=== PATIENT | female | born 1990 | race Caucasian/White ===

== ENCOUNTER 2020-07-09 14:32 | Outpatient (REF) | payer OTHER, SELFPAY ==
[2020-07-09 16:02] LABS: Basophils Absolute Auto 0.1 X10*3/uL (0.0-0.2); Basophils Percent Auto 0.7 % (0-2); MANUAL DIFF FLAG SCAN; Monocytes Percent Auto 8.2 % (2-11); Neutrophils Absolute Auto 4.7 X10*3/uL (2.0-8.3); PLT CLUMP 1; SCAN SMEAR FLAG 1
[2020-07-09 16:04] LABS: Eosinophils Absolute Auto 0.5 X10*3/uL (0.0-0.4); Hematocrit 41.8 % (37-47); Hemoglobin 13.7 g/dl (12.0-16.0); Imm Gran Abs Auto 0.01 X10*3/uL (0.00-0.03); Imm Gran Pct Auto 0.1 % (0.0-0.4); Lymphocytes Absolute Auto 1.7 X10*3/uL (1.2-4.9); Lymphocytes Percent Auto 22.8 % (20-40); Mean Corpuscular HGB Conc 32.8 g/dl (31.0-35.0); Mean Corpuscular Hemoglobin 28.2 pg (27.0-33.0); Monocytes Absolute Auto 0.6 X10*3/uL (0.1-1.2); Neutrophils Percent Auto 62.2 % (45-73); Red Blood Count 4.86 X10*6/uL (4.20-5.50); White Blood Count 7.6 X10*3/uL (4.8-10.8)
[2020-07-09 16:24] LABS: Platelet Count 212 X10*3/uL (160-400)
[2020-07-09 16:26] LABS: SLIDE REVIEW VERIFIED
[2020-07-09 17:07] LABS: Alanine Aminotransferase 25 U/L (0-31); Albumin Level 4.6 g/dL (3.5-5.0); Alkaline Phosphatase 96 U/L (39-117); Anion Gap 14 (12-20); Aspartate Amino Transferase 25 U/L (5-31); Bilirubin Total 0.4 mg/dL (0.0-1.0); Blood Urea Nitrogen 13 mg/dL (9-16); Carbon Dioxide 26 mmol/L (22-29); Chloride 104 mmol/L (96-108); Cholesterol 239 mg/dL; Estimated Glomerular Filt Rate > 60; Glucose Fasting 84 mg/dL (60-99); HDL Cholesterol 61 mg/dL; LDL Cholesterol Calculated 153 mg/dl; Potassium 4.5 mmol/l (3.3-5.1); Sodium 139 mmol/L (135-145); Total Protein 7.4 g/dL (6.5-8.0); Triglycerides 126 mg/dL
[2020-07-09 17:27] LABS: Vitamin D 25-OH Total 11.2 ng/mL (>30)
[2020-07-09 17:28] LABS: TSH reflex Free T4 0.63 mIU/mL (0.32-4.0)
[2020-07-10 12:33] LABS: Complement C3 160 mg/dL (83-193)
[2020-07-10 14:33] LABS: Anti DNA DS Antibody <1 IU/mL; Antibody to SS-A Antigen <1.0 NEG AI (<1.0 NEG); Antibody to SS-B Antigen <1.0 NEG AI (<1.0 NEG)
[2020-07-11 13:18] LABS: Anti Nuclear Antibody Screen NEGATIVE (NEGATIVE)
== END 2020-07-09 14:33 | disposition home or self-care (01) ==
LOC: HO.LAB 14:32
PROVIDERS: Absent Provider Physician Assistant; PCP Physician Assistant; Visit Provider Physician Assistant
DX: L56.3 Solar urticaria (principal); J30.1 Allergic rhinitis due to pollen; E78.9 Disorder of lipoprotein metabolism, unspecified; E66.09 Other obesity due to excess calories; Z68.34 Body mass index [BMI] 34.0-34.9, adult
CPT/HCPCS: 36415; 80053; 80061; 82306; 84443; 85025; 86038; 86039; 86160; 86225; 86235

== ENCOUNTER 2021-04-30 09:09 | Outpatient (REF) | payer BC, SELFPAY ==
[2021-04-30 09:47] LABS: Hematocrit 40.1 % (37-47); Hemoglobin 13.2 g/dl (12.0-16.0); Mean Corpuscular HGB Conc 32.9 g/dl (31.0-35.0); Mean Corpuscular Hemoglobin 27.8 pg (27.0-33.0); Mean Corpuscular Volume 84.4 fL (80-98); Mean Platelet Volume 10.2 fL (9.4-12.3); Platelet Count 287 X10*3/uL (160-400); Red Blood Count 4.75 X10*6/uL (4.20-5.50); Red Cell Distribution Width 13.4 % (11.0-16.0); White Blood Count 8.1 X10*3/uL (4.8-10.8)
[2021-04-30 09:54] LABS: Estimated Average Glucose 108 mg/dL; Hemoglobin A1c % 5.4 %
[2021-04-30 10:12] LABS: Alanine Aminotransferase 39 U/L (0-31); Albumin Level 4.3 g/dL (3.5-5.0); Alkaline Phosphatase 87 U/L (39-117); Anion Gap 12 (12-20); Aspartate Amino Transferase 25 U/L (5-31); Bilirubin Total 0.4 mg/dL (0.0-1.0); Blood Urea Nitrogen 15 mg/dL (9-16); Calcium 9.1 mg/dL (8.4-10.2); Carbon Dioxide 24 mmol/L (22-29); Chloride 107 mmol/L (96-108); Cholesterol 204 mg/dL; Estimated Glomerular Filt Rate > 60; Glucose Fasting 98 mg/dL (60-99); HDL Cholesterol 35 mg/dL; LDL Cholesterol Calculated 95 mg/dl; Potassium 4.2 mmol/L (3.3-5.1); Sodium 139 mmol/L (135-145); Total Protein 6.9 g/dL (6.5-8.0); Triglycerides 372 mg/dL
[2021-04-30 10:35] LABS: TSH reflex Free T4 1.54 uIU/mL (0.32-4.0)
== END 2021-04-30 09:10 | disposition home or self-care (01) ==
LOC: HO.LAB 09:09
PROVIDERS: PCP Physician Assistant; Visit Provider Physician Assistant
DX: E66.09 Other obesity due to excess calories (principal); Z68.34 Body mass index [BMI] 34.0-34.9, adult; E78.9 Disorder of lipoprotein metabolism, unspecified; I10 Essential (primary) hypertension
CPT/HCPCS: 36415; 80053; 80061; 83036; 84443; 85027

== ENCOUNTER 2022-04-06 19:33 | Emergency (ER) | payer BC, SELFPAY ==
[2022-04-06 20:30] VITALS: BP 115/68; PULSE 105; RESP 18; TEMP 37.2; O2SAT 95; BMI 33.5
[2022-04-06 20:59] LABS: MANUAL DIFF FLAG NO
[2022-04-06 21:02] LABS: Basophils Absolute Auto 0.1 X10*3/uL (0.0-0.2); Basophils Percent Auto 0.5 % (0-2); Eosinophils Absolute Auto 0.4 X10*3/uL (0.0-0.4); Eosinophils Percent Auto 3.8 % (0-4); Hematocrit 34.2 % (37.0-47.0); Hemoglobin 11.5 g/dl (12.0-16.0); Imm Gran Abs Auto 0.09 X10*3/uL (0.00-0.03); Imm Gran Pct Auto 0.8 % (0.0-0.4); Lymphocytes Absolute Auto 0.8 X10*3/uL (1.2-4.9); Lymphocytes Percent Auto 7.1 % (20-40); Mean Corpuscular HGB Conc 33.6 g/dl (31.0-35.0); Mean Corpuscular Hemoglobin 28.3 pg (27.0-33.0); Mean Platelet Volume 10.5 fL (9.4-12.3); Monocytes Absolute Auto 0.8 X10*3/uL (0.1-1.2); Monocytes Percent Auto 7.7 % (2-11); Neutrophils Absolute Auto 8.6 x10*3/uL (2.0-8.3); Neutrophils Percent Auto 80.1 % (45-73); Platelet Count 230 X10*3/uL (160-400); Red Blood Count 4.07 X10*6/uL (4.20-5.50); Red Cell Distribution Width 14.8 % (11.0-16.0); White Blood Count 10.8 X10*3/uL (4.8-10.8)
[2022-04-06 21:04] LABS: COVID-19 Test Negative (Negative); IDNOW Serial# 55D5AD1C
[2022-04-06 21:23] LABS: Alanine Aminotransferase 13 U/L (0-31); Albumin Level 3.6 g/dL (3.5-5.0); Alkaline Phosphatase 104 U/L (39-117); Anion Gap 19 (12-20); Aspartate Amino Transferase 19 U/L (5-31); Bilirubin Total 0.2 mg/dL (0.0-1.0); Blood Urea Nitrogen 7 mg/dL (9-16); Calcium 8.8 mg/dL (8.4-10.2); Carbon Dioxide 16 mmol/L (22-29); Chloride 106 mmol/L (96-108); Creatinine Clr Calc Pharmacy 129.9; Estimated Glomerular Filt Rate > 60; Glucose Random 97 mg/dL (60-115); Sodium 137 mmol/L (135-145); Total Protein 6.5 g/dL (6.5-8.0)
[2022-04-07 01:48] VITALS: BP 120/70; PULSE 107; RESP 17; TEMP 36.9; O2SAT 97
[2022-04-07 02:08] LABS: Appearance Urine Clear; Color Urine Yellow; Glucose Urine UA Negative (Negative); Leukocyte Esterase Urine Negative (Negative); Nitrite Urine Negative (Negative); PH 5.5 (5.0-9.0); Specific Gravity - Urine 1.025 (1.005-1.025); Urine Blood Negative (Negative); Urine Ketones Trace mg/dL (Negative); Urine Protein Negative (Neg-Trace)
--- NOTE | 2022-04-07 03:02 | ED_ITS ---
HPI - URI/Sore Throat General Chief Complaint: Fever Stated Complaint: 21 wks , flu like symptoms Time Seen by Provider: 04/07/22 03:02 Source: patient Mode of arrival: ambulatory Limitations: no limitations History of Present Illness HPI Narrative: Patient 21 weeks complaining of flu-like symptoms with subjective shortness of breath body aches chills off and on history of asthma saturating 95% at room air no other family member sick Related Data Home Medications Medication Instructions Recorded Confirmed cetirizine 10 mg tablet 10 mg PO DAILY PRN 11/20/20 04/30/21 hydrocortisone 2.5 % topical topical 11/20/20 04/30/21 ointment Previous Rx's Medication Instructions Recorded lorazepam 0.5 mg tablet 0.5 mg PO DAILY PRN anxiety 7 days 11/20/20 #7 tabs fluticasone propionate 50 1 spray intranasal DAILY #16 mL 03/16/21 mcg/actuation nasal spray,suspension albuterol sulfate 90 mcg/actuation 2 puff inhalation Q4-6H PRN 03/30/21 aerosol inhaler shortness of breath or wheezing 30 days #8.5 grams fluticasone propionate 110 1 puff inhalation BID 30 days #12 04/30/21 mcg/actuation HFA aerosol inhaler grams (Flovent HFA) montelukast 10 mg tablet 10 mg PO DAILY #90 tabs 04/30/21 prednisone 10 mg tablet 30 mg PO DAILY 3 days #9 tabs 11/24/21 sertraline 25 mg tablet 25 mg PO DAILY #30 tabs 12/03/21 budesonide 90 mcg/actuation breath 1 inh inhalation Q12H 30 days #1 ea 02/23/22 activated powder inhaler Allergies Allergy/AdvReac Type Severity Reaction Status Date / Time Seasonal Allergies Allergy Mild sneezing, Verified 04/06/22 20:32 runny nose cat saliva Allergy Mild hives, Uncoded 03/30/21 16:49 itchy eyes Review of Systems Review of Systems: Yes all other systems are reviewed and are negative [facility] Family History Family History Mother High cholesterol Diabetes Fibromyalgia Social History Social History Housing: House Alcohol intake: never Patient Tobacco Use Status: Never used Tobacco e-Cigarette/Vaping Use: Never Used Advance Directives: No Advance Directives Information Provided: Yes service: No Current occupational status: employed Current occupation: [employer] Physical Exam Vital Signs: Vital Signs: Last Vital Signs Temp 98.5 F 04/07/22 01:48 Pulse 107 H 04/07/22 01:48 Resp 17 04/07/22 01:48 BP 120/70 04/07/22 01:48 Pulse Ox 97 04/07/22 01:48 O2 Del Method 04/07/22 01:48 BMI result Body Mass Index 33.5 Appearance: Alert. Oriented X3. No acute distress. Eyes: PERRLA, No Nystagmus ENT: Pharynx normal. Oral Mucosa moist rhinorrhea+ Neck: Normal inspection. Neck supple. CVS: Normal heart rate and rhythm. Pulses normal. Respiratory: No respiratory distress. Equal air entry bilateral, no wheezing/rales/rhonchi Abdomen: Soft and nontender.gravid uterus Bowel sounds are present, no mass palpable, no CVA tenderness Skin: Skin warm and dry. Normal skin color. Normal skin turgor. Extremities: No lower extremity edema. No calf tenderness Neuro: Oriented X 3. No motor deficit. MDM - URI/Sore Throat Lab Data Attestation: I reviewed the patient's lab results. Result diagrams: 04/06/22 20:56 04/06/22 20:56 Labs: Lab Results 04/06/22 04/06/22 04/06/22 Range/Units 20:34 20:56 20:56 WBC 10.8 (4.8-10.8) X10*3/uL RBC 4.07 L (4.20-5.50) X10*6/uL Hgb 11.5 L (12.0-16.0) g/dl Hct 34.2 L (37.0-47.0) % MCV 84.0 (80.0-98.0) fL MCH 28.3 (27.0-33.0) pg MCHC 33.6 (31.0-35.0) g/dl RDW 14.8 (11.0-16.0) % Plt Count 230 (160-400) X10*3/uL MPV 10.5 (9.4-12.3) fL Immature Gran % (Auto) 0.8 H (0.0-0.4) % Neut % (Auto) 80.1 H (45-73) % Lymph % (Auto) 7.1 L (20-40) % Starr % (Auto) 7.7 (2-11) % Eos % (Auto) 3.8 (0-4) % Baso % (Auto) 0.5 (0-2) % Lymph # (Auto) 0.8 L (1.2-4.9) X10*3/uL [place] # (Auto) 0.8 (0.1-1.2) X10*3/uL Eos # (Auto) 0.4 (0.0-0.4) X10*3/uL Baso # (Auto) 0.1 (0.0-0.2) X10*3/uL Abs Immat Gran (auto) 0.09 H (0.00-0.03) X10*3/uL Absolute Neuts (auto) 8.6 H (2.0-8.3) x10*3/uL Absolute Nucleated RBC 0.000 (0.0-0.012) X10*3/uL Nucleated RBC % (auto) 0.0 (0.0-0.2) /100WBC Sodium 137 (135-145) mmol/L Potassium 4.0 (3.3-5.1) mmol/L Chloride 106 (96-108) mmol/L Carbon Dioxide 16 L (22-29) mmol/L Anion Gap 19 (12-20) BUN 7 L (9-16) mg/dL Creatinine 0.59 (0.5-1.4) mg/dL Estim Creat Clear Calc 129.9 Estimated GFR > 60 Random Glucose 97 (60-115) mg/dL Calcium 8.8 (8.4-10.2) mg/dL Total Bilirubin 0.2 (0.0-1.0) mg/dL AST 19 (5-31) U/L ALT 13 (0-31) U/L Alkaline Phosphatase 104 (39-117) U/L Total Protein 6.5 (6.5-8.0) g/dL Albumin 3.6 (3.5-5.0) g/dL Urine Color Urine Appearance Urine pH (5.0-9.0) Ur Specific [place] (1.005-1.025) Urine Protein (Neg-Trace) mg/dL Urine Glucose (UA) (Negative) mg/dL Urine Ketones (Negative) mg/dL Urine Blood (Negative) Urine Nitrite (Negative) Ur Leukocyte Esterase (Negative) COVID-19 ([facility]) Negative (Negative) COVID-19 Clin Com See Note 04/07/22 Range/Units 02:01 WBC (4.8-10.8) X10*3/uL RBC (4.20-5.50) X10*6/uL Hgb (12.0-16.0) g/dl Hct (37.0-47.0) % MCV (80.0-98.0) fL MCH (27.0-33.0) pg MCHC (31.0-35.0) g/dl RDW (11.0-16.0) % Plt Count (160-400) X10*3/uL MPV (9.4-12.3) fL Immature Gran % (Auto) (0.0-0.4) % Neut % (Auto) (45-73) % Lymph % (Auto) (20-40) % Starr % (Auto) (2-11) % Eos % (Auto) (0-4) % Baso % (Auto) (0-2) % Lymph # (Auto) (1.2-4.9) X10*3/uL Starr # (Auto) (0.1-1.2) X10*3/uL Eos # (Auto) (0.0-0.4) X10*3/uL Baso # (Auto) (0.0-0.2) X10*3/uL Abs Immat Gran (auto) (0.00-0.03) X10*3/uL Absolute Neuts (auto) (2.0-8.3) x10*3/uL Absolute Nucleated RBC (0.0-0.012) X10*3/uL Nucleated RBC % (auto) (0.0-0.2) /100WBC Sodium (135-145) mmol/L Potassium (3.3-5.1) mmol/L Chloride (96-108) mmol/L Carbon Dioxide (22-29) mmol/L Anion Gap (12-20) BUN (9-16) mg/dL Creatinine (0.5-1.4) mg/dL Estim Creat Clear Calc Estimated GFR Random Glucose (60-115) mg/dL Calcium (8.4-10.2) mg/dL Total Bilirubin (0.0-1.0) mg/dL AST (5-31) U/L ALT (0-31) U/L Alkaline Phosphatase (39-117) U/L Total Protein (6.5-8.0) g/dL Albumin (3.5-5.0) g/dL Urine Color Yellow Urine Appearance Clear Urine pH 5.5 (5.0-9.0) Ur Specific [place] 1.025 (1.005-1.025) Urine Protein Negative (Neg-Trace) mg/dL Urine Glucose (UA) Negative (Negative) mg/dL Urine Ketones Trace (Negative) mg/dL Urine Blood Negative (Negative) Urine Nitrite Negative (Negative) Ur Leukocyte Esterase Negative (Negative) COVID-19 ([facility]) (Negative) COVID-19 Clin Com Discharge Plan Discharge Clinical Impression: Upper respiratory infection Patient Disposition: Home, Self-Care Instructions: Upper Respiratory Infection (ED) Additional Instructions: Continue to use your inhaler as needed Humidified air Tylenol for fever or pain Follow with PCP as needed Prescriptions: No Action fluticasone propionate 50 mcg/actuation spray,suspension 1 spray intranasal DAILY Qty: 16 3RF prednisone 10 mg tablet 30 mg PO DAILY 3 Days Qty: 9 0RF sertraline 25 mg tablet 25 mg PO DAILY Qty: 30 3RF budesonide 90 mcg/actuation aerosol powdr breath activated 1 inh inhalation Q12H 30 Days Qty: 1 1RF Flovent HFA 110 mcg/actuation HFA aerosol inhaler 1 puff inhalation BID 30 Days Qty: 12 3RF montelukast 10 mg tablet 10 mg PO DAILY Qty: 90 2RF cetirizine 10 mg tablet 10 mg PO DAILY PRN hydrocortisone 2.5 % ointment topical lorazepam 0.5 mg tablet 0.5 mg PO DAILY PRN (Reason: anxiety) 7 Days Qty: 7 0RF albuterol sulfate 90 mcg/actuation HFA aerosol inhaler 2 puff inhalation Q4-6H PRN (Reason: shortness of breath or wheezing) 30 Days Qty: 8.5 3RF Interventions: ED Discharge Assessment Last Done: 04/07/22 03:21 Discharge Date/Time: 04/07/22 03:26
--- NOTE | 2022-04-07 03:22 | PC.NURSE ---
HR 154
== END 2022-04-07 03:26 | disposition home or self-care (01) ==
PROVIDERS: Emergency Provider Internal Medicine; PCP Physician Assistant
DX: J06.9 Acute upper respiratory infection, unspecified (principal); R50.9 Fever, unspecified; Z20.822 Contact with and (suspected) exposure to COVID-19; Z79.899 Other long term (current) drug therapy
CPT/HCPCS: 80053; 81003; 85025; 87635; 99283

== ENCOUNTER 2022-05-21 14:49 | Outpatient (REF) | payer BC, SELFPAY ==
[2022-05-21 16:31] LABS: TSH reflex Free T4 0.44 uIU/mL (0.32-4.0); Vitamin D 25-OH Total 41.2 ng/mL (>30)
== END 2022-05-21 14:50 | disposition home or self-care (01) ==
LOC: HO.LAB 14:49
PROVIDERS: PCP Physician Assistant; Visit Provider Nurse Practitioner Family
DX: Z00.00 Encounter for general adult medical examination without abnormal findings (principal)
CPT/HCPCS: 36415; 82306; 84443

== ENCOUNTER 2023-03-29 08:47 | Emergency (ER) | payer BC, SELFPAY ==
--- NOTE | ~2023-03-29 | US_ITS ---
EXAMINATION: US PELVIS CLINICAL INFORMATION: The conus, lower abdominal pain COMPARISON: None available. TECHNIQUE: Ultrasound of the pelvis is performed using both transabdominal and transvaginal transducers along with Doppler. Transvaginal imaging is performed due to inadequate visualization transabdominally. FINDINGS: Uterus: The uterus is anteverted and measures 7.9 x 3.9 x 4.6 cm. The double wall endometrial thickness is 0.92 cm . The uterus is smooth in contour and has normal myometrial echogenicity. No visible fibroid. Adnexa: Both ovaries are visualized. There is normal color flow to the adnexa. There is no ovarian torsion. There is no pelvic ascites or fluid collection. Right ovary measures 3.2 x 1.9 x 1.7 centimeters and volume 5.5 mL. No focal lesion seen previously right ovary measured 4.0 x 5.0 x 3.3). Left ovary measures 3.8 x 1.9 x 2.1 cm and volume 1.9 mL. No focal lesion seen. Previously it measured 2.2 x 3.1 x 1.7). There is normal arterial and venous flow seen on color and Doppler imaging. There is mild prominent of pulmonary vessels in the right adnexa. There is small amount of free fluid in the cul-de-sac. US/US pelvic and transvaginal IMPRESSION: Unremarkable uterus. The ovaries are unremarkable with normal color flow and Doppler imaging. There is no evidence of ovarian torsion. Suspected right pelvic congestion. Small amount of free fluid in cul-de-sac.
--- NOTE | ~2023-03-29 | US_ITS ---
EXAMINATION: US PELVIS CLINICAL INFORMATION: The conus, lower abdominal pain COMPARISON: None available. TECHNIQUE: Ultrasound of the pelvis is performed using both transabdominal and transvaginal transducers along with Doppler. Transvaginal imaging is performed due to inadequate visualization transabdominally. FINDINGS: Uterus: The uterus is anteverted and measures 7.9 x 3.9 x 4.6 cm. The double wall endometrial thickness is 0.92 cm . The uterus is smooth in contour and has normal myometrial echogenicity. No visible fibroid. Adnexa: Both ovaries are visualized. There is normal color flow to the adnexa. There is no ovarian torsion. There is no pelvic ascites or fluid collection. Right ovary measures 3.2 x 1.9 x 1.7 centimeters and volume 5.5 mL. No focal lesion seen previously right ovary measured 4.0 x 5.0 x 3.3). Left ovary measures 3.8 x 1.9 x 2.1 cm and volume 1.9 mL. No focal lesion seen. Previously it measured 2.2 x 3.1 x 1.7). There is normal arterial and venous flow seen on color and Doppler imaging. There is mild prominent of pulmonary vessels in the right adnexa. There is small amount of free fluid in the cul-de-sac. US/US pelvic ovarian doppler IMPRESSION: Unremarkable uterus. The ovaries are unremarkable with normal color flow and Doppler imaging. There is no evidence of ovarian torsion. Suspected right pelvic congestion. Small amount of free fluid in cul-de-sac.
[2023-03-29 08:53] VITALS: BP 132/72; PULSE 100; RESP 18; TEMP 36.7; O2SAT 99; BMI 35.7
[2023-03-29 09:09] LABS: MANUAL DIFF FLAG NO
[2023-03-29 09:12] LABS: Basophils Absolute Auto 0.1 X10*3/uL (0.0-0.2); Basophils Percent Auto 0.9 % (0-2); Eosinophils Absolute Auto 0.5 X10*3/uL (0.0-0.4); Eosinophils Percent Auto 6.1 % (0-4); Hematocrit 40.5 % (37.0-47.0); Imm Gran Abs Auto 0.04 X10*3/uL (0.00-0.03); Imm Gran Pct Auto 0.5 % (0.0-0.4); Lymphocytes Absolute Auto 1.8 X10*3/uL (1.2-4.9); Lymphocytes Percent Auto 21.4 % (20-40); Mean Corpuscular HGB Conc 32.1 g/dl (31.0-35.0); Mean Corpuscular Hemoglobin 26.7 pg (27.0-33.0); Mean Corpuscular Volume 83.2 fL (80.0-98.0); Mean Platelet Volume 10.1 fL (9.4-12.3); Monocytes Absolute Auto 0.6 X10*3/uL (0.1-1.2); Monocytes Percent Auto 7.7 % (2-11); Neutrophils Absolute Auto 5.2 x10*3/uL (2.0-8.3); Neutrophils Percent Auto 63.4 % (45-73); Platelet Count 263 X10*3/uL (160-400); Red Blood Count 4.87 X10*6/uL (4.20-5.50); Red Cell Distribution Width 14.5 % (11.0-16.0); White Blood Count 8.2 X10*3/uL (4.8-10.8)
--- NOTE | 2023-03-29 09:12 | ED.ABDPAIN ---
HPI - Abdominal Pain General Chief Complaint: Abdominal Pain Stated Complaint: Abd pain Time Seen by Provider: 03/29/23 09:06 Source: patient, RN notes reviewed and old records reviewed Mode of arrival: ambulatory History of Present Illness HPI narrative: 32yo female with a history of PCOS w/ ruptured cyst presenting to the ED c/o lower abdominal pain that started 2 hours ago. Patient is 7 months with an uncomplicated vaginal delivery. Denies use of contraception and LMP was 02/23/23. Denies trauma to the abdomen, fever, chills, N/V/D, vaginal bleeding/discharge, flank pain, urinary sx MD elicited complaint: abdominal pain Related Data Home Medications Medication Instructions Recorded Confirmed cetirizine 10 mg tablet 10 mg PO DAILY PRN 11/20/20 11/26/22 Previous Rx's Medication Instructions Recorded albuterol sulfate 90 mcg/actuation 2 puff inhalation Q4-6H PRN 05/21/22 aerosol inhaler shortness of breath or wheezing 30 days #8.5 grams sertraline 50 mg tablet 50 mg PO DAILY #90 tabs 11/26/22 Allergies Allergy/AdvReac Type Severity Reaction Status Date / Time Seasonal Allergies Allergy Mild sneezing, Verified 11/26/22 11:40 runny nose cat saliva Allergy Mild hives, Uncoded 11/26/22 11:40 itchy eyes Review of Systems Review of Systems Constitutional: No Weight loss, No Fever, No Chills ENT/Mouth: No Ear Pain, No Nasal Congestion, No Sinus Pain, No Hoarseness, No sore throat, No Rhinorrhea, No Swallowing Difficulty Cardiovascular: No Chest Pain, No SOB Respiratory: No Cough, No Sputum, No Wheezing Gastrointestinal: No Nausea, No Vomiting, No Diarrhea, No Constipation, +Lower Abdominal pain Genitourinary: No vaginal bleeding or discharge, No Dysuria, No Urinary Frequency, No Hematuria, No Flank Pain Musculoskeletal: No joint pain, No Myalgias, No Joint Swelling Skin: No Skin Lesions, No rash Neuro: No Weakness, No Numbness, No Paresthesias Yes all other systems are reviewed and are negative Constitutional: Reports as per [facility] Past Medical History Attestation statement: The following information was validated with the patient. Source: old records reviewed Medical History Family History Family History Mother High cholesterol Diabetes Fibromyalgia Social History Social History Housing: House Alcohol intake: never Patient Tobacco Use Status: Never used Tobacco Smoked in Last 30 Days: No e-Cigarette/Vaping Use: Never Used Use of substances other than those prescribed or required for medical reasons: No Advance Directives: No Advance Directives Information Provided: Yes Patient : No service: No Current occupational status: employed Current occupation: [employer] Cognitive needs: No Hearing needs: No Vision needs: No Physical Exam ED Vital Signs: Vital Signs - 24 hr 03/29/23 08:53 03/29/23 09:53 Temperature 98.1 F 98.2 F Pulse Rate 100 76 Respiratory Rate 18 16 Blood Pressure 132/72 121/67 Pulse Oximetry 99 96 Oxygen Delivery Method Room Air Room Air BMI result Body Mass Index 35.7 Const General: cooperative, healthy appearing and no acute distress Orientation/consciousness: patient oriented x3 Limitations: no limitations HENMT Head: Yes normal to inspection and Yes atraumatic Ears: hearing grossly normal bilaterally General nose exam: Normal external nose present Face and sinus: Yes normal facial exam Eyes General: appearance normal, both eyes and all related structures EOM: EOMs intact bilaterally Neck Neck: Yes normal visual inspection and Yes no meningeal signs Resp Effort & Inspection: normal respiratory effort and no respiratory distress Auscultation: clear to auscultation bilaterally Cardio Rate: regular rate Heart sounds: S1 normal heart sound present and S2 normal heart sound present GI Other: Abdomen is soft, symmetric, nondistended with no evidence of lesions or masses. Inspection: Yes normal to inspection Palpation (GI): Soft to palpation, Tenderness to palpation present (GI) suprapubicly; with no rebound tenderness, no guarding and not rigid General: Yes no CVA tenderness OB/external & speculum: Deferred OB/external & speculum exam Back/Spine/Pelvis Back: no CVA tenderness Skin Rashes: no rashes Wounds: no wounds Neuro General: patient oriented x3, tone normal and no meningeal signs Cranial nerves: Yes CN's II-XII intact bilaterally Gait exam (Neuro): Normal gait present Extrem General: Yes normal to inspection Course Course Course Narrative: -[id number]--no leukocytosis. H&H stable. Labs otherwise reassuring. negative -UA with RBCs, not infected US pelvic and transvaginal IMPRESSION: Unremarkable uterus. The ovaries are unremarkable with normal color flow and Doppler imaging. There is no evidence of ovarian torsion. Suspected right pelvic congestion. Small amount of free fluid in cul-de-sac. >Results discussed with patient including worrisome signs and symptoms and strict return precautions, and when to return to the emergency department. They verbalized understanding and feel safe for discharge at this time. Medical Decision Making Medical Decision Making MDM Narrative: 32yo female with a history of PCOS w/ ruptured cyst presenting to the ED c/o lower abdominal pain that started 2 hours ago. Vitals are stable. On PE patient nontoxic appearing but has lower abdominal/suprapubic tenderness to palpation without guarding/rebound, no CVAT. Concern for PCOS w/ ovarian cyst vs rupture vs vs ectopic vs UTI. Lower suspicious for ovarian torsion or appendicitis or diverticulitis/pancreatitis/cholecystitis/lithiasis. Plan: pelvic US, labs, urine, hcg Patient for to course for remaining medical decision making including lab/imaging interpretations, conversations with consultants, etc. Differential Diagnosis Differential Diagnoses: The differential diagnosis associated with the presentation includes As above Admission/Observation Consideration of admission/observation: Escalation of care including admission/observation considered Lab Data [facility] Lab Attestation statement: I reviewed the patient's lab results. 03/29/23 09:06 03/29/23 09:06 Labs: Lab Results 03/29/23 03/29/23 Range/Units 09:06 09:55 WBC 8.2 (4.8-10.8) X10*3/uL RBC 4.87 (4.20-5.50) X10*6/uL Hgb 13.0 (12.0-16.0) g/dl Hct 40.5 (37.0-47.0) % MCV 83.2 (80.0-98.0) fL MCH 26.7 L (27.0-33.0) pg MCHC 32.1 (31.0-35.0) g/dl RDW 14.5 (11.0-16.0) % Plt Count 263 (160-400) X10*3/uL MPV 10.1 (9.4-12.3) fL Immature Gran % (Auto) 0.5 H (0.0-0.4) % Neut % (Auto) 63.4 (45-73) % Lymph % (Auto) 21.4 (20-40) % [place] % (Auto) 7.7 (2-11) % Eos % (Auto) 6.1 H (0-4) % Baso % (Auto) 0.9 (0-2) % Lymph # (Auto) 1.8 (1.2-4.9) X10*3/uL [place] # (Auto) 0.6 (0.1-1.2) X10*3/uL Eos # (Auto) 0.5 H (0.0-0.4) X10*3/uL Baso # (Auto) 0.1 (0.0-0.2) X10*3/uL Abs Immat Gran (auto) 0.04 H (0.00-0.03) X10*3/uL Absolute Neuts (auto) 5.2 (2.0-8.3) x10*3/uL Absolute Nucleated RBC 0.000 (0.0-0.012) X10*3/uL Nucleated RBC % (auto) 0.0 (0.0-0.2) /100WBC Sodium 139 (135-145) mmol/L Potassium 3.7 (3.3-5.1) mmol/L Chloride 107 (96-108) mmol/L Carbon Dioxide 21 L (22-29) mmol/L Anion Gap 15 (12-20) BUN 12 (9-16) mg/dL Creatinine 0.75 (0.5-1.4) mg/dL Estim Creat Clear Calc 104.7 Estimated GFR > 60 Random Glucose 101 (60-115) mg/dL Calcium 9.6 D (8.4-10.2) mg/dL Total Bilirubin 0.4 (0.0-1.0) mg/dL AST 18 (5-31) U/L ALT 17 (0-31) U/L Alkaline Phosphatase 94 (39-117) U/L Total Protein 7.6 (6.5-8.0) g/dL Albumin 4.4 (3.5-5.0) g/dL Lipase 11 (8-78) U/L Beta HCG, Quant < 2 mIU/mL Urine Color Yellow Urine Appearance Clear Urine pH 5.5 (5.0-9.0) Ur Specific [place] 1.020 (1.005-1.025) Urine Protein Negative (Neg-Trace) mg/dL Urine Glucose (UA) Negative (Negative) mg/dL Urine Ketones Negative (Negative) mg/dL Urine Blood Negative (Negative) Urine Nitrite Negative (Negative) Ur Leukocyte Esterase Trace H (Negative) Urine RBC 3-5 H (0-2) /HPF Urine WBC 0-5 (0-5) /HPF Ur Squamous Epith Cells 3-5 (0-2) /HPF Urine Bacteria None Seen (None Seen) Hyaline Casts 0-2 (0-2) /LPF Urine Test NEGATIVE (NEGATIVE) Radiology Impression Discussion of test interpretation with radiology: I have reviewed the radiologist's reading. External Record Review External record reviewed: Inpatient record, Office record, Outpatient record, Prior outpatient labs, Prior outpatient radiology, Primary care record and Outside ED record Tests considered The following testing was considered but not selected: As above Chronic Conditions Patient?s care impacted by: Other (PCOS) Discharge Plan Discharge Clinical Impression: Lower abdominal pain Patient Disposition: Home, Self-Care Instructions: Abdominal Pain (ED) Additional Instructions: Your blood work is reassuring. 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 [place] [facility] [Provider Group] Deniz López PA-C [Primary Care Provider] - Interventions: ED Discharge Assessment Last Done: 03/29/23 12:09 Discharge Date/Time: 03/29/23 12:10
[2023-03-29 09:25] LABS: Alanine Aminotransferase 17 U/L (0-31); Albumin Level 4.4 g/dL (3.5-5.0); Alkaline Phosphatase 94 U/L (39-117); Anion Gap 15 (12-20); Aspartate Amino Transferase 18 U/L (5-31); Bilirubin Total 0.4 mg/dL (0.0-1.0); Blood Urea Nitrogen 12 mg/dL (9-16); Calcium 9.6 mg/dL (8.4-10.2); Carbon Dioxide 21 mmol/L (22-29); Chloride 107 mmol/L (96-108); Creatinine Clr Calc Pharmacy 104.7; Estimated Glomerular Filt Rate > 60; Glucose Random 101 mg/dL (60-115); Potassium 3.7 mmol/L (3.3-5.1); Sodium 139 mmol/L (135-145); Total Protein 7.6 g/dL (6.5-8.0)
[2023-03-29 09:53] VITALS: BP 121/67; PULSE 76; RESP 16; TEMP 36.8; O2SAT 96
--- NOTE | 2023-03-29 09:59 | PC.NURSE ---
pt a&ox3, vss, pt comes in today d/t non-radiating bilateral lower abdominal pain that began this morning. pt describes pain as a stabbing sensation. pt verbalizes pain as a 5/10 but pain was about a 9/10 this morning. pt denies n/v/d/urinary symptoms. pt denies hx of kidney stones. denies chance of . pt does have hx of ovarian cysts - states that last time she had a cyst it burst (4 years ago). pt states that this is the main reason she came to ED today. pt resting comfortably in no apparent distress. respirations even and unlabored. lung sounds clear upon auscultation. ultrasound currently taking pt. will reassess when pt returns.
[2023-03-29 10:04] LABS: Appearance Urine Clear; Color Urine Yellow; Glucose Urine UA Negative (Negative); Leukocyte Esterase Urine Trace (Negative); Nitrite Urine Negative (Negative); PH 5.5 (5.0-9.0); UMIC TRIGGER UACC YES; Urine Blood Negative (Negative); Urine Ketones Negative (Negative); Urine Protein Negative (Neg-Trace)
[2023-03-29 10:10] LABS: UPreg QC Valid YES; Urine Pregnancy NEGATIVE (NEGATIVE)
[2023-03-29 10:22] LABS: Bacteria Urine None Seen (None Seen); Hyaline Casts Urine 0-2 /LPF (0-2); WBC Urine 0-5 /HPF (0-5)
[2023-03-29 10:40] LABS: Lipase 11 U/L (8-78)
--- NOTE | 2023-03-29 10:42 | PC.NURSE ---
pt returned from ultrasound. resting comfortably in bed in no apparent distress. respirations even and unlabored. call zhu placed within reach.
[2023-03-29 10:50] LABS: HCG Quantitative < 2 mIU/mL
[2023-03-29 11:54] VITALS: BP 117/66; PULSE 67; RESP 18; TEMP 37; O2SAT 97
== END 2023-03-29 12:10 | disposition home or self-care (01) ==
PROVIDERS: Physician Assistant; Emergency Provider Emergency Medicine; PCP Physician Assistant
DX: R10.30 Lower abdominal pain, unspecified (principal); R10.2 Pelvic and perineal pain; Z79.899 Other long term (current) drug therapy
CPT/HCPCS: 36415; 76830; 76856; 80053; 81001; 81003; 81025; 83690; 84702; 85025; 93975; 99284

== ENCOUNTER 2023-05-31 15:56 | Outpatient (AMB) | payer BC, SELFPAY ==
[2023-05-31 15:57] VITALS: BP 108/60; PULSE 80; O2SAT 98; BMI 34.8
--- NOTE | 2023-05-31 15:57 | MHC.PC.OV ---
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: No Accompanied by: Self / Same As Patient Allergies Seasonal Allergies Allergy (Mild, Verified 05/31/23 16:22) sneezing, runny nose cat saliva Allergy (Mild, Uncoded 05/31/23 16:09) hives, itchy eyes Medication List - Last Reconciled 05/31/23 by Deniz López PA-C albuterol sulfate 90 mcg/actuation 2 puffs inhalation Q4-6H PRN 30 days cetirizine 10 mg PO DAILY PRN sertraline 50 mg PO DAILY Tobacco use date assessed: 11/26/22 Dental Screening Dental Screen Date: 05/31/23 Did you have a dental visit in the last 12 months?: Yes Did you have a dental problem in the last 6 months where you did not have access to dental care?: No Was dental information given to patient?: Patient has dentist HPI Physical exam HPI Details Patient is a 32-year-old female here today for a routine annual physical. Patient's past history significant for generalized anxiety disorder, borderline high cholesterol, obesity. 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 Obesity: Has lost some weight since last office visit. She did have a baby girl 9 months ago. She does report losing weight during her . .. Asthma: Has been well controlled with p.r.n. use of her albuterol inhaler. Does use allergy medication which helps control her asthma as well. .. Generalized anxiety disorder: She reports her general anxiety disorder has been fairly well controlled with current dose of Zoloft. Vaccines: Up-to-date with COVID vaccine, tetanus vaccine, UTD with Flu vaccine . 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 Lio Mcclellan, Mila Valentin, Caleb Goncalves and colleagues, with an educational konstantin from [employer]. ACT Questionnaire In the past 4 weeks, how much of the time did your asthma keep you from getting as much done at work, school or at home?: None of the time During the past 4 weeks, how often have you had shortness of breath?: 1-2 times a week During the past 4 weeks, how often did your asthma symptoms wake you up at night or earlier than usual in the morning?: Not at all During the past 4 weeks, how often have you had to use your rescue inhaler or nebulizer medication?: Not at all How would you rate your asthma control during the past 4 weeks?: Completely controlled ACT Interpretation: Negative Score: 24 Review of Systems Const Denies body aches, Denies chills, Denies excessive sweating, Denies fatigue, Denies fever(s) and Denies headache(s) Eyes Denies blurry vision ENT Denies dysphagia, Denies vertigo, Denies dizziness, Denies headache(s), Denies hearing loss and Denies tinnitus Card Denies chest pain, Denies chest pain with activity, Denies syncope, Denies irregular heart rhythm and Denies dyspnea Resp Denies chest congestion, Denies cough, Denies hemoptysis, Denies dyspnea and Denies wheezing GI Denies abdominal pain, Denies melena, Denies hematochezia, Denies coffee ground emesis, Denies dysphagia, Denies diarrhea, Denies nausea and Denies vomiting Denies urinary frequency, Denies dysuria, Denies urinary hesitancy and Denies urinary urgency Musc Denies arthralgias, Denies limited range of motion, Denies muscle cramps and Denies muscle weakness Skin/Breast Denies rash and Denies skin ulcer Neuro Denies Abnormal speech present, Denies confusion, Denies vertigo, Denies dizziness, Denies syncope, Denies headache(s), Denies memory loss and Denies seizure-like activity Psych Denies anxiety, Denies confusion, Denies depression, Denies memory loss, Denies panic attacks and Denies paranoia Endo Denies excessive sweating, Denies fatigue, Denies flushing, Denies polydipsia and Denies polyuria Aller/Immun Denies wheezing Physical exam (Primary Care) Vital Signs: Last Vital Signs Pulse 80 05/31/23 15:57 BP 108/60 05/31/23 15:57 Pulse Ox 98 05/31/23 15:57 Oxygen Delivery Method Room Air 05/31/23 15:57 BMI result Body Mass Index 34.8 BMI Assessment/Plan discussion: High Tobacco/Smoking Status: Tobacco use Status Tobacco use date assessed 11/26/22 05/31/23 15:57 Patient Tobacco Use Status Never used Tobacco 05/31/23 16:25 e-Cigarette/Vaping Use Never Used 05/31/23 16:25 Thrive Assessment: Date of Thrive Assessment Date Thrive assessed 05/21/22 05/31/23 15:57 Const Other: Obese General: cooperative, comfortable, no acute distress, alert and awake; No confusion Orientation/consciousness: oriented to person, oriented to place, patient oriented x3 and No confusion HENMT Head: Yes normocephalic Ears: external ears normal and TM's normal bilaterally Face and sinus: No sinus tenderness Mouth: Normal oral and palatal mucosa present and tongue normal Teeth and gingiva: dentition normal and gingiva normal Throat: Yes posterior oropharynx normal, Yes tonsils normal and Yes uvula midline Eyes Conjunctivae: conjunctivae normal Sclerae: sclerae normal Pupils: Equal, round and reactive pupils present EOM: EOMs intact bilaterally Direct Ophthalmoscopy: No no photophobia Neck Neck: Yes no lymphadenopathy, No tender and Yes no JVD Thyroid: Thyroid normal Carotids: no bruits Chest Chest palpation & inspection: no tenderness Resp Effort & Inspection: normal respiratory effort, no audible wheezes, not labored and no stridor Auscultation: no crackles, no rales, no rhonchi and no wheezes Cardio Jugular venous distension: no JVD Rate: regular rate, not bradycardic and not tachycardic Rhythm: regular rhythm Bruits: no carotid bruits Peripheral pulses: Peripheral pulses 2+ throughout GI Inspection: Yes normal to inspection, No abdominal wall ecchymosis and No visible herniation Palpation (GI): Soft to palpation, nontender, no guarding, not rigid and No hepatosplenomegaly present Auscultation: normoactive bowel sounds General: Yes no CVA tenderness Back/Spine/Pelvis Back: no CVA tenderness and No back tenderness Cervical Spine: cervical ROM normal Thoracic/Lumbar Spine: thoracic and lumbar spine normal to inspection, straight leg raise negative bilaterally, No thoraco-lumbar ROM limited and No lumbar spinal tenderness Skin Lesions: no lesions Rashes: no rashes Wounds: no wounds Neuro General: oriented to person, oriented to place, patient oriented x3, CN's II-XI intact bilaterally and No confusion Cranial nerves: Yes Equal, round and reactive pupils present and Yes Normal accommodation reflex present Cognition (Neuro): normal cognition Speech: No Abnormal speech present Gait exam (Neuro): Normal gait present Motor exam (neuro): 5/5 motor strength present throughout Extrem Right upper extremity: full ROM; no cyanosis Left upper extremity: full ROM; no cyanosis Right lower extremity: no edema Left lower extremity: no edema Psych Appearance: grossly normal Mental Status: mental status grossly normal Affect: normal affect Attitude: cooperative Thought process: Normal thought process present Assessment and Plan Assessment & Plan (1) Annual physical exam: Code(s): Z00.00 - Encounter for general adult medical examination without abnormal findings (2) REGINO (generalized anxiety disorder): Code(s): F41.1 - Generalized anxiety disorder Plan: She reports her anxiety has been well controlled with current dose of SSRI therapy. (3) Asthma: Code(s): J45.909 - Unspecified asthma, uncomplicated Qualifiers: Asthma complication type: uncomplicated Asthma persistence: intermittent Asthma severity: mild Qualified Code(s): J45.20 - Mild intermittent asthma, uncomplicated Plan: She reports her asthma has been fairly well controlled. Only using her albuterol inhaler on a p.r.n. basis. Does use allergy medication on a daily basis which does help control her asthma symptoms. (4) Obese: Code(s): E66.9 - Obesity, unspecified Qualifiers: Body mass index: BMI 34.0-34.9 Obesity classification: adult class 1 (BMI 30 - 34.9) Obesity type: due to excess calories Serious obesity comorbidity presence: without serious comorbidity Qualified Code(s): E66.09 - Other obesity due to excess calories; Z68.34 - Body mass index [BMI] 34.0-34.9, adult Plan: Patient does understand her BMI is over 30 and wants to work on being more physically active at that and better eating habits to reduce her weight. (5) Borderline high cholesterol: Code(s): E78.9 - Disorder of lipoprotein metabolism, unspecified Plan: Patient's most recent lipid panel showing elevated total cholesterol. Patient has been working on lifestyle to reduce her cholesterol in her diet. Will recheck lipid panel Orders: Orders Comprehensive [place]. Panel Fast 05/31/23 E78.9 - Disorder of lipoprotein metabolism, unspecified, Z13.1 - Encounter for screening for diabetes mellitus Lipid Panel 05/31/23 E78.9 - Disorder of lipoprotein metabolism, unspecified, Z13.1 - Encounter for screening for diabetes mellitus Medications: Changed From cetirizine 10 mg PO DAILY PRN J45.20 - Mild intermittent asthma, uncomplicated To cetirizine 10 mg PO DAILY 90 days 90 tabs 2RF J45.20 - Mild intermittent asthma, uncomplicated Coding Level of Care Code Est Pt Prev Care 18-39y(23023) Diagnoses Annual physical exam Z00.00 REGINO (generalized anxiety disorder) F41.1 Mild intermittent asthma without complication J45.20 Asthma complication type: uncomplicated Asthma persistence: intermittent Asthma severity: mild Class 1 obesity due to excess calories without serious comorbidity with body mass index (BMI) of 34.0 to 34.9 in adult E66.09; Z68.34 Body mass index: BMI 34.0-34.9 Obesity classification: adult class 1 (BMI 30 - 34.9) Obesity type: due to excess calories Serious obesity comorbidity presence: without serious comorbidity Borderline high cholesterol E78.9
== END 2023-05-31 16:35 | disposition home or self-care (01) ==
PROVIDERS: Visit Provider Physician Assistant
DX: Z00.00 Encounter for general adult medical examination without abnormal findings (principal); F41.1 Generalized anxiety disorder; J45.20 Mild intermittent asthma, uncomplicated; E66.09 Other obesity due to excess calories; Z68.34 Body mass index [BMI] 34.0-34.9, adult; E78.9 Disorder of lipoprotein metabolism, unspecified
CPT/HCPCS: 99395

== ENCOUNTER 2023-07-02 09:36 | Outpatient (REF) | payer BC, SELFPAY ==
[2023-07-02 10:24] LABS: Alanine Aminotransferase 18 U/L (0-31); Albumin Level 4.4 g/dL (3.5-5.0); Alkaline Phosphatase 93 U/L (39-117); Anion Gap 12 (12-20); Aspartate Amino Transferase 22 U/L (5-31); Bilirubin Total 0.5 mg/dL (0.0-1.0); Blood Urea Nitrogen 16 mg/dL (9-16); Calcium 9.3 mg/dL (8.4-10.2); Carbon Dioxide 24 mmol/L (22-29); Chloride 106 mmol/L (96-108); Cholesterol 225 mg/dL (<200); Estimated Glomerular Filt Rate > 60; Glucose Fasting 98 mg/dL (60-99); HDL Cholesterol 51 mg/dL (>40); LDL Cholesterol Calculated 142 mg/dL (<100); Potassium 3.7 mmol/L (3.3-5.1); Sodium 138 mmol/L (135-145); Total Protein 7.4 g/dL (6.5-8.0); Triglycerides 162 mg/dL (<150)
== END 2023-07-02 09:37 | disposition home or self-care (01) ==
LOC: HO.LAB 09:36
PROVIDERS: PCP Physician Assistant; Visit Provider Physician Assistant
DX: Z13.1 Encounter for screening for diabetes mellitus (principal); E78.9 Disorder of lipoprotein metabolism, unspecified
CPT/HCPCS: 36415; 80053; 80061

== ENCOUNTER 2024-01-19 16:03 | Outpatient (AMB) | payer BC, SELFPAY ==
[2024-01-19 16:05] VITALS: BP 116/74; PULSE 85; TEMP 36.8; O2SAT 98; BMI 35.7
--- NOTE | 2024-01-19 16:05 | AM.OFFWIN_ITS ---
Intake Vital Signs 01/19/24 16:05 Height 5 ft Weight 183 lb BMI 35.7 BP 116/74 Blood Pressure Location Lt brachial Position Sitting Pulse 85 Pulse Source Pulse Oximeter Temp 98.3 F Temp Source Oral Pulse Oximetry (%) 98 Oxygen Delivery Method Room Air Intake Visit Reasons: EP lower back pain Intake Note: pt is here c/o lower back pain. Started about a month ago. Comes and goes. Some days worse than others Patient Tobacco Use Status: Never used Tobacco Allergies Seasonal Allergies Allergy (Mild, Verified 01/19/24 16:05) sneezing, runny nose cat saliva Allergy (Mild, Uncoded 01/19/24 16:05) hives, itchy eyes Do you need a note to return to daycare/school/sports/work: No HPI HPI Comments History of Present Illness Details Patient is a 33-year-old female complaining of about a month of low back pain that is getting worse. She states the left side is worse than the right. She states that it is on the sides of her spine and she has a sharp shooting pain that goes down her buttocks into her left leg. She has not tried anything to make it better. She denies any trauma, any new workout regimens, new mattress or pillows. 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 Cognitive needs: No Hearing needs: No Vision needs: No Review of Systems Const All systems reviewed & are unremarkable except as noted in HPI and below Physical Exam Vital Signs: Last Vital Signs Temp 98.3 F 01/19/24 16:05 Pulse 85 01/19/24 16:05 BP 116/74 01/19/24 16:05 Pulse Ox 98 01/19/24 16:05 Oxygen Delivery Method Room Air 01/19/24 16:05 BMI result Body Mass Index 35.7 Const General: cooperative, healthy appearing and comfortable Orientation/consciousness: patient oriented x3 HEENT Head: Yes normal to inspection General nose exam: Normal external nose present Face and sinus: Yes normal facial exam Eyes General: appearance normal, both eyes and all related structures Resp Effort & Inspection: normal respiratory effort and able to speak in complete sentences General: Yes no CVA tenderness Back/Spine/Pelvis Back: no CVA tenderness Cervical Spine: No Cervical spine tenderness Thoracic/Lumbar Spine: thoracic and lumbar spine normal to inspection, pain with thoraco-lumbar ROM, No paraspinal muscle tenderness, No thoracic spinal tenderness, No lumbar spinal tenderness and straight leg raise positive left Neuro General: patient oriented x3 Extrem Other: Straight leg raise test negative on right; Straight leg raise test positive on left; motor strength normal bilaterally Assessment & Plan Assessment & Plan (1) Sciatica: Code(s): M54.30 - Sciatica, unspecified side Qualifiers: Laterality: left Qualified Code(s): M54.32 - Sciatica, left side Plan: Explained risks and benefits of prednisone as well as use of prednisone to patient, advised she can use it with Aleve, ice and rest. Also if these methods fail she should try a Salonpas or other lidocaine style patch or Voltaren gel. If she does not have any relief in her symptoms after this, she should follow up with her primary care doctor. Any loss of control of her bladder or bowels, she should go to the emergency room. Plan See above Medications: New prednisone 20 mg PO DAILY 5 tabs 0RF Coding Level of Care Code Est Pt Level 3 (27503) Diagnoses Sciatica of left side M54.32 Laterality: left
== END 2024-01-19 16:36 | disposition home or self-care (01) ==
PROVIDERS: PCP Physician Assistant; Visit Provider Physician Assistant
DX: M54.32 Sciatica, left side (principal)
CPT/HCPCS: 99213

== ENCOUNTER 2024-01-30 14:08 | Outpatient (AMB) | payer BC, SELFPAY ==
--- NOTE | 2024-01-30 15:04 | AM.OFFWIN_ITS ---
Intake Vital Signs 01/30/24 15:05 Height 5 ft Weight 184 lb BMI 35.9 BP 122/78 Blood Pressure Location Lt brachial Position Sitting Pulse 79 Pulse Source Pulse Oximeter Temp Source Oral Pulse Oximetry (%) 98 Oxygen Delivery Method Room Air Intake Visit Reasons: lower back pain- see comments Intake Note: pt here c/o lower back pain. Not resolving Patient Tobacco Use Status: Never used Tobacco Allergies Seasonal Allergies Allergy (Mild, Verified 01/30/24 15:04) sneezing, runny nose cat saliva Allergy (Mild, Uncoded 01/30/24 15:04) hives, itchy eyes Do you need a note to return to daycare/school/sports/work: Yes HPI HPI Comments History of Present Illness Details Patient presents to the walk-in today for sick visit Complaining of back pain for 3 weeks Denies injury, trauma, fall, accident Was seen here 1.5 weeks ago, diagnosed with ?sciatica ?and given prednisone 20 mg daily x5 days Reports no improvement after the completion of prednisone. Has been taking ibuprofen with minimal improvement of her symptoms Endorses left lower back pain with radiation down the left leg to the thigh. Worse with sitting, standing Denies radiating pain past the level of the knee. 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 Answers questions appropriately. Fully engaged in examination. Skin: warm, dry, intact HEENT: Normocephalic. Hearing intact. Cardiac: External chest normal in appearance. Respiratory: No cough, audible wheezing or stridor. Abdomen: without gross distension. MS: No obvious swelling or deformities. Able to stand on bilateral tiptoes and bilateral heels.? Able to transition from sit to stand unassisted. Ambulates with bilaterally normal heel strike and toe off Tenderness over left PSIS Nontender over midline lumbar vertebrae and lumbar paraspinal muscles [place] positive on the left Thigh thrust positive on the left SI compression positive on the left SLR with dorsiflexion negative bilaterally Neurological: Oriented to person, place, time and situation. Thought process intact. No gait abnormalities appreciated. Psychiatric: Appropriate mood and affect. Good judgment and insight. Assessment & Plan Assessment & Plan (1) Sacroiliac joint dysfunction of left side: Code(s): M53.3 - Sacrococcygeal disorders, not elsewhere classified Plan Order placed for PT eval and treat for left sacroiliac joint dysfunction Diclofenac 50 mg p.o. b.i.d.. Patient advised on cautions for use. Take with food. Methocarbamol 500 mg p.o. t.i.d.. Patient advised on cautions for use Follow up with PCP, if no improvement recommend referral to [facility] pain management for diagnostic sacroiliac joint injection on the left. All questions and concerns were answered, patient agrees with the plan. Orders: Orders PT Evaluation and Treatment Today M53.3 - Sacrococcygeal disorders, not elsewhere classified Medications: New diclofenac potassium Take with food. Do not take with any other nonsteroidal anti-inflammatory medications. 50 mg PO BID 30 tabs 0RF methocarbamol May cause drowsiness. No driving while taking this medication. 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
[2024-01-30 15:05] VITALS: BP 122/78; PULSE 79; O2SAT 98; BMI 35.9
== END 2024-01-30 15:32 | disposition home or self-care (01) ==
PROVIDERS: PCP Physician Assistant; Visit Provider Registered Nurse Emergency
DX: M53.3 Sacrococcygeal disorders, not elsewhere classified (principal)
CPT/HCPCS: 99213

== ENCOUNTER 2024-02-09 15:58 | Outpatient (REF) | payer BC, SELFPAY ==
--- NOTE | ~2024-02-09 | XR_ITS ---
EXAMINATION: XR LUMBOSACRAL SPINE CLINICAL INFORMATION: Sacrococcygeal disorders, not otherwise specified. COMPARISON: None relevant. TECHNIQUE: Five views of the lumbosacral spine. FINDINGS: There is no scoliosis. There is normal lordosis. There are no subluxations. There are no fractures or suspicious bony abnormalities. Prominent Schmorl's node in the inferior endplate of L5. Disc spaces are maintained with only minimal narrowing of L5-S1. Facets are normally aligned. There are no pars defects. The sacrum and SI joints appear normal. No soft tissue abnormalities. XR/XR lumbar spine 4V min IMPRESSION: Aside from minimal disc space narrowing L5-S1, normal lumbosacral spine. Electronically signed by: Govind Billy MD 04/06/2024 04:20 PM EDT
== END 2024-02-09 15:59 | disposition home or self-care (01) ==
LOC: HO.XRAY 15:58
PROVIDERS: PCP Physician Assistant; Visit Provider Physician Assistant
DX: M53.3 Sacrococcygeal disorders, not elsewhere classified (principal)
CPT/HCPCS: 72110

== ENCOUNTER → 2024-02-09 16:04 | Outpatient (BNV) | payer BC, SELFPAY | PROVIDERS: PCP Physician Assistant; Visit Provider Radiology Diagnostic Radiology | DX: M53.3 Sacrococcygeal disorders, not elsewhere classified (principal) | CPT/HCPCS: 72110 ==

== ENCOUNTER 2024-02-10 13:32 | Outpatient (AMB) | payer BC, SELFPAY ==
--- NOTE | 2024-02-10 13:32 | MHC.OFFVIS ---
Vital Signs 02/10/24 13:34 Height 5 ft Weight 184 lb BMI 35.9 BP 134/64 Blood Pressure Location Lt brachial Position Sitting Respiration 16 Pulse 76 Pulse Source Pulse Oximeter Pulse Oximetry (%) 98 Oxygen Delivery Method Room Air Intake Visit Reasons: Sacrococcygeal disorders, not elsewhere classified Allergies Seasonal Allergies Allergy (Mild, Verified 02/10/24 13:35) sneezing, runny nose cat saliva Allergy (Mild, Uncoded 02/10/24 13:35) hives, itchy eyes Medication List - Last Reconciled 02/10/24 by Aruna Romo LPN albuterol sulfate 90 mcg/actuation 2 puffs inhalation Q4-6H PRN 30 days cetirizine 10 mg PO DAILY 90 days cyclobenzaprine 5 mg PO BEDTIME 14 days diclofenac potassium 50 mg PO BID methocarbamol 500 mg PO BEDTIME PRN sertraline 50 mg PO DAILY trazodone 50 mg PO DAILY 4 days HPI HPI Sacrococcygeal disorders, not elsewhere classified: Details: Patient is a pleasant 33-year-old female presents today for initial evaluation of lower back pain with radiation to the left posterior leg. She was recently seen at our [facility] for sciatica and SI joint pain and had partial symptom relief with prednisone, NSAID, and muscle relaxants. She has history of vaginal delivery 1-1/2 years ago without complications and had epidural analgesia. She presents today with minimal left SI joint pain with positive provocative testing but strong positive SLR testing on the left in L5-S1 distribution. Patient recently completed lumbar spine x-ray, pending results. Denies any recent trauma, injury, or falls. 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 Reports significant pain increase with movements and daily activities as well as she cares for her toddler and reports increasing lower spine pain with bending, leaning forward or crouching. Denies any fever, chills, weight loss, abdominal or groin pain, weakness, foot drop, bladder or bowel dysfunction or saddle anesthesia. Reports intermittent heaviness in her left lower extremity. Location: Left sided low back radiates into left lateral hip and thigh Duration: No inciting event, pain present for 3-4 months Characteristics of symptom or complaint: Pulsing, throbbing, shooting, stabbing, radiating, heavy, aching, sore Aggravating or associated factors: Walking, sitting, standing, bending, lifting, pulling, leaning forward Relieving factors: Rest, cyclobenzaprine, methocarbamol, diclofenac, heat Treatment: Walk-in clinic x2 with sciatica/SIJ, prednisone 20 mg daily x5 days [facility] Medical History Family History Mother High cholesterol Diabetes Fibromyalgia Social History Housing: House Alcohol intake: never Patient Tobacco Use Status: Never used Tobacco e-Cigarette/Vaping Use: Never Used service: No Current occupational status: employed 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 Alert and oriented. Mood and affect appropriate. Follows and participates in conversation appropriately. Respiratory effort is unlabored. No cough. Able to transition from sit to stand unassisted. Ambulates with bilaterally normal heel strike and toe off, reports increase pain with left toe standing. General: Yes no CVA tenderness Back/Spine/Pelvis Other: Patient is able to walk and stand on heels and tip toes with mild-moderate difficulty on the left otherwise demonstrating good motor tone. No limping. Can flex forward to 65-70 degrees and extend to 5-10 degrees before experiencing lumbar pain. Demonstrates 5/5 strength of quadriceps bilaterally as well as flexion/dorsiflexion of bilateral feet against resistance. 2+ pedal pulses bilaterally. Straight leg rise with dorsiflexion positive on the left. +2 patellar and achilles reflexes bilaterally. Facet loading test positive bilaterally, left>right. Lee sign, Chase?s, Gaenslen, Pelvic compression and Stinchfield tests are positive on the left. No groin pain with I/E hip rotations. Valsalva maneuver negative. Back: no CVA tenderness Cervical Spine: cervical ROM normal, cervical muscular tenderness and No Cervical spine tenderness Thoracic/Lumbar Spine: thoracic and lumbar spine normal to inspection, No Thoracic/lumbar spine scar(s), Lasegue's sign positive on the left and localized, pain with thoraco-lumbar ROM, paraspinal muscle tenderness, thoraco-lumbar ROM limited, No thoracic spinal tenderness and lumbar spinal tenderness (L4-S1) Pelvis: buttock tenderness on the left and sciatic notch tenderness on the left Sacroiliac joints: on the right nontender and on the left tender to palpation Results Reviewed Results Reviewed: No imaging reports are available for review. Assessment & Plan Assessment & Plan (1) Sacroiliac joint dysfunction of left side: Code(s): M53.3 - Sacrococcygeal disorders, not elsewhere classified Category: Medical (2) Low back pain: Code(s): M54.50 - Low back pain, unspecified Category: Medical (3) Lumbar radiculopathy: Code(s): M54.16 - Radiculopathy, lumbar region Category: Medical (4) Muscle spasm of back: Code(s): M62.830 - Muscle spasm of back Category: Medical (5) Lumbar spondylosis: Code(s): M47.816 - Spondylosis without myelopathy or radiculopathy, lumbar region Category: Medical Plan Discussed interventional treatments for left-sided SI joint pain which patient reports is minimal today. She reports radicular low back pain and left leg pain is more of her main concern today as pain is easily reproduced with bending, leaning forward or caring for her toddler at home as well as prolonged standing, walking or sitting. We will proceed with lumbar spine MRI to assess for neural integrity and compression. Patient is aware to call if pain worsens or if she develops any red flag symptoms to seek emergency care. Patient denies any cauda equina syndrome symptoms at this time. Avoid heavy lifting or pain producing activities, continue NSAID and muscle relaxant p.r.n., heat therapy and gentle stretching. Discussed importance of adequate hydration, good posture, daily physical activity, well-balanced diet and weight optimization for a longer-term back pain management. All questions and concerns have been answered and patient agreed with the treatment plan. Patient will return to the clinic to discuss results of the MRI findings when it is done and consider interventional therapy as indicated.? Orders: Orders MR lumbar spine wo con 02/10/24 M53.3 - Sacrococcygeal disorders, not elsewhere classified, M54.16 - Radiculopathy, lumbar region, M54.50 - Low back pain, unspecified Coding Level of Care Code New Pt Level 4 (34869) Diagnoses Sacroiliac joint dysfunction of left side M53.3 Low back pain M54.50 Lumbar radiculopathy M54.16 Muscle spasm of back M62.830 Lumbar spondylosis M47.816
[2024-02-10 13:34] VITALS: BP 134/64; PULSE 76; RESP 16; O2SAT 98; BMI 35.9
== END 2024-02-10 14:03 | disposition home or self-care (01) ==
PROVIDERS: PCP Physician Assistant; Visit Provider Nurse Practitioner Family
DX: M53.3 Sacrococcygeal disorders, not elsewhere classified (principal); M54.50 Low back pain, unspecified; M54.16 Radiculopathy, lumbar region; M62.830 Muscle spasm of back; M47.816 Spondylosis without myelopathy or radiculopathy, lumbar region
CPT/HCPCS: 99204

== ENCOUNTER → 2024-02-10 13:32 | Outpatient (BNVA) | payer BC, SELFPAY | PROVIDERS: PCP Physician Assistant; Visit Provider Nurse Practitioner Family ==

== ENCOUNTER 2024-06-05 15:05 | Outpatient (AMB) | payer BC, SELFPAY ==
--- NOTE | 2024-06-05 15:19 | A.OFFPC_ITS ---
Vital Signs 06/05/24 15:20 Height 5 ft Weight 180 lb 4 oz BMI 35.2 BP 106/70 Blood Pressure Location Lt brachial Position Sitting Pulse 70 Pulse Source Palpation Intake Visit Reasons: pe Intake Note: Patient is here today for a physical. 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 Accompanied by: Self / Same As Patient Allergies Seasonal Allergies Allergy (Mild, Verified 06/05/24 15:35) sneezing, runny nose cat saliva Allergy (Mild, Uncoded 06/05/24 15:35) hives, itchy eyes Medication List - Last Reconciled 06/05/24 by Deniz López PA-C albuterol sulfate 90 mcg/actuation 2 puffs inhalation Q4-6H PRN 30 days cetirizine 10 mg PO DAILY 90 days trazodone 50 mg PO DAILY 4 days Tobacco use date assessed: 06/05/24 Dental Screening Dental Screen Date: 06/05/24 Did you have a dental visit in the last 12 months?: Yes Did you have a dental problem in the last 6 months where you did not have access to dental care?: No Was dental information given to patient?: Patient has dentist HPI pe HPI Details Patient is a 33-year-old female here today for a routine annual physical. Patient's past history significant for generalized anxiety disorder, borderline high cholesterol, obesity. 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 Obesity: Patient does understand her BMI is over 35 and will work on being more physically active and adapt to better eating habits to reduce her weight .. Asthma: Has been well controlled with p.r.n. use of her albuterol inhaler. Does use allergy medication which helps control her asthma as well. .. Generalized anxiety disorder: She reports her general anxiety disorder has been fairly well controlled with Zoloft. She has not been taking Zoloft for quite some time as she forgets to use it. She is willing to restart medication as she has felt better with SSRI therapy. Vaccines: Up-to-date with COVID vaccine, tetanus vaccine, UTD with Flu vaccine . [facility] Medical History (Updated 06/06/24 @ 07:40 by Deniz López PA-C) Panic attacks Lumbar spondylosis Family History Mother High cholesterol Diabetes Fibromyalgia Social History (Updated 06/05/24 @ 15:39 by Deniz López PA-C) Housing: House Alcohol intake: never Patient Tobacco Use Status: Never used Tobacco e-Cigarette/Vaping Use: Never Used Second Hand Smoke Exposure: No service: No Current occupational status: employed Current occupation: [employer] works Cognitive needs: No Hearing needs: No Vision needs: No Questionnaire PHQ-9 Over the last 2 weeks, how often have you been bothered by any of the following problems? 1. Little interest or pleasure in doing things: not at all 2. Feeling down, depressed, or hopeless: several days 3. Trouble falling or staying asleep, or sleeping too much: several days 4. Feeling tired or having little energy: several days 5. Poor appetite or overeating: not at all 6. Feeling bad about yourself - or that you are a failure or have let yourself or your family down: several days 7. Trouble concentrating on things, such as reading the newspaper or watching television: more than half the days 8. Moving or speaking so slowly that other people could have noticed. Or the opposite - being so fidgety or restless that you have been moving around a lot more than usual: not at all 9. Thoughts that you would be better off or of hurting yourself in some way: not at all Total score: 6 Depression Screening Interpretation: Positive Depression Screening Follow-up: Existing condition Depression Screening Done: Yes 78564 - PHQ-9 Billing: Yes Source: Developed by Drs. Lio Mcclellan, Mila Valentin, Caleb Goncalves and colleagues, with an educational konstantin from [employer]. Thrive Questionnaire Date Thrive assessed: 06/05/24 I am a: Patient What is your living situation today?: I have a steady place to live Within the past 12 months, did the food you bought not last and you didn't have the money to get more?: Never true Within the past 12 months, did you worry whether your food would run out before you got money to buy more?: Never true Do you have trouble paying for medicines?: No Do you have trouble getting transportation to medical appointments?: No Do you have trouble paying your heating and electricity bill?: No Do you have trouble taking care of your child, family member or friend?: No Do you have trouble with day-to-day activities such as bathing, preparing meals, shopping, managing finances, etc.?: No Are you currently unemployed and looking for a job?: No Are you interested in more education?: Yes Please select the resources that you would like help with: Education Currently or been in a relationship where the following occur: No concerns reported THRIVE Score: 0 AUDIT C Alcohol Use Questionnaire (AUDIT-C) 1. How often do you have a drink containing alcohol?: Never 3. How often do you have six or more drinks on one occasion?: Never Total Score: 0 REGINO-7 AMB Questionnaire REGINO-7 Date REGINO - 7 assessed: 06/05/24 Feeling nervous, anxious, or on edge: 2 = More than half the days Not being able to stop or control worryin = Several days Worrying too much about different things: 1 = Several days Trouble relaxin = Several days Being so restless that it is hard to sit still: 1 = Several days Becoming easily annoyed or irritable: 0 = Not at all Feeling afraid as if something awful might happen: 1 = Several days Total REGINO-7 score (0-4 normal; 5-9 mild; 10-14 moderate; 15-21 severe): 7 Source: Developed by Drs. Lio Mcclellan, Mila Valentin, Caleb Goncalves and colleagues, with an educational konstantin from [employer]. REGINO-7 Assessment Billing REGINO-7 Assessment Tool: REGINO-7 Assessment 86965 ACT Questionnaire In the past 4 weeks, how much of the time did your asthma keep you from getting as much done at work, school or at home?: None of the time During the past 4 weeks, how often have you had shortness of breath?: Not at all During the past 4 weeks, how often did your asthma symptoms wake you up at night or earlier than usual in the morning?: Not at all During the past 4 weeks, how often have you had to use your rescue inhaler or nebulizer medication?: Not at all How would you rate your asthma control during the past 4 weeks?: Completely controlled ACT Interpretation: Negative Score: 25 Review of Systems Const Denies body aches, Denies chills, Denies excessive sweating, Denies fatigue, Denies fever(s) and Denies headache(s) Eyes Denies blurry vision ENT Denies dysphagia, Denies vertigo, Denies dizziness, Denies headache(s), Denies hearing loss and Denies tinnitus Card Denies chest pain, Denies chest pain with activity, Denies syncope, Denies irregular heart rhythm and Denies dyspnea Resp Denies chest congestion, Denies cough, Denies hemoptysis, Denies dyspnea and Denies wheezing GI Denies abdominal pain, Denies melena, Denies hematochezia, Denies coffee ground emesis, Denies dysphagia, Denies diarrhea, Denies nausea and Denies vomiting Denies urinary frequency, Denies dysuria, Denies urinary hesitancy and Denies urinary urgency Musc Denies arthralgias, Denies limited range of motion, Denies muscle cramps and Denies muscle weakness Skin/Breast Denies rash and Denies skin ulcer Neuro Denies Abnormal speech present, Denies confusion, Denies vertigo, Denies dizziness, Denies syncope, Denies headache(s), Denies memory loss and Denies seizure-like activity Psych Denies anxiety, Denies confusion, Denies depression, Denies memory loss, Denies panic attacks and Denies paranoia Endo Denies excessive sweating, Denies fatigue, Denies flushing, Denies polydipsia and Denies polyuria Aller/Immun Denies wheezing Physical exam (Primary Care) Vital Signs: Last Vital Signs Pulse 70 06/05/24 15:20 BP 106/70 06/05/24 15:20 BMI result Body Mass Index 35.2 BMI Assessment/Plan discussion: High BMI High, discussed plan: lifestyle, weight reduction, dietary and physical activity Tobacco/Smoking Status: Tobacco use Status Tobacco use date assessed 06/05/24 06/05/24 15:21 Patient Tobacco Use Status Never used Tobacco 06/05/24 15:39 e-Cigarette/Vaping Use Never Used 06/05/24 15:39 PHQ-9: PHQ-9 Score PHQ-9: Total score 6 06/05/24 15:50 Depression Screening Interpretation: Positive Depression Screening Follow-up: Existing condition Thrive Assessment: Date of Thrive Assessment Date Thrive assessed 06/05/24 06/05/24 15:21 Currently or been in a relationship where the following occur: No concerns reported Const General: cooperative, comfortable, no acute distress, alert and awake; No confusion Orientation/consciousness: oriented to person, oriented to place, patient oriented x3 and No confusion HENMT Head: Yes normocephalic Ears: external ears normal and TM's normal bilaterally Face and sinus: No sinus tenderness Mouth: Normal oral and palatal mucosa present and tongue normal Teeth and gingiva: dentition normal and gingiva normal Throat: Yes posterior oropharynx normal, Yes tonsils normal and Yes uvula mi dline Eyes Conjunctivae: conjunctivae normal Sclerae: sclerae normal Pupils: Equal, round and reactive pupils present EOM: EOMs intact bilaterally Direct Ophthalmoscopy: No no photophobia Neck Neck: Yes no lymphadenopathy, No tender and Yes no JVD Thyroid: Thyroid normal Carotids: no bruits Chest Chest palpation & inspection: no tenderness Resp Effort & Inspection: normal respiratory effort, no audible wheezes, not labored and no stridor Auscultation: no crackles, no rales, no rhonchi and no wheezes Cardio Jugular venous distension: no JVD Rate: regular rate, not bradycardic and not tachycardic Rhythm: regular rhythm Bruits: no carotid bruits Peripheral pulses: Peripheral pulses 2+ throughout GI Inspection: Yes normal to inspection, No abdominal wall ecchymosis and No visible herniation Palpation (GI): Soft to palpation, nontender, no guarding, not rigid and No hepatosplenomegaly present Auscultation: normoactive bowel sounds General: Yes no CVA tenderness Back/Spine/Pelvis Back: no CVA tenderness and No back tenderness Cervical Spine: cervical ROM normal Thoracic/Lumbar Spine: thoracic and lumbar spine normal to inspection, straight leg raise negative bilaterally, No thoraco-lumbar ROM limited and No lumbar spinal tenderness Skin Lesions: no lesions Rashes: no rashes Wounds: no wounds Neuro General: oriented to person, oriented to place, patient oriented x3, CN's II-XI intact bilaterally and No confusion Cranial nerves: Yes Equal, round and reactive pupils present and Yes Normal accommodation reflex present Cognition (Neuro): normal cognition Speech: No Abnormal speech present Gait exam (Neuro): Normal gait present Motor exam (neuro): 5/5 motor strength present throughout Extrem Right upper extremity: full ROM; no cyanosis Left upper extremity: full ROM; no cyanosis Right lower extremity: no edema Left lower extremity: no edema Psych Appearance: grossly normal Mental Status: mental status grossly normal Affect: normal affect Attitude: cooperative Thought process: Normal thought process present Coding Level of Care Code Est Pt Prev Care 18-39y(36496) Diagnoses Annual physical exam Z00.00 REGINO (generalized anxiety disorder) F41.1 Mild intermittent asthma without complication J45.20 Asthma complication type: uncomplicated Asthma persistence: intermittent Asthma severity: mild Borderline high cholesterol E78.9 Additional Codes Asthma Control Questionnaire - ACT Interpretation: Negative ([id number]) REGINO-7 Assessment Billing - REGINO-7 Assessment Tool: REGINO-7 Assessment 08787 ([id number]) PHQ-9 - 06264 - PHQ-9 Billing: Yes ([id number]) Assessment & Plan Assessment & Plan (1) Annual physical exam: Code(s): Z00.00 - Encounter for general adult medical examination without abnormal findings Category: Medical Plan: As per HPI (2) REGINO (generalized anxiety disorder): Code(s): F41.1 - Generalized anxiety disorder Category: Medical Plan: Patient's REGINO-7 score positive for anxiety which has been existing condition. She is interested in restarting SSRI therapy which has helped her in the past. She will be trying to get back into therapy. (3) Asthma: Code(s): J45.909 - Unspecified asthma, uncomplicated Category: Medical Qualifiers: Asthma complication type: uncomplicated Asthma persistence: intermittent Asthma severity: mild Qualified Code(s): J45.20 - Mild intermittent asthma, uncomplicated Plan: She reports her asthma has been well controlled with only p.r.n. use of her albuterol inhaler. No nighttime awakenings with asthma symptoms or recent a sthma exacerbations. (4) Borderline high cholesterol: Code(s): E78.9 - Disorder of lipoprotein metabolism, unspecified Category: Medical Plan: Patient has a history of borderline high cholesterol. Will recheck fasting lipids Medications: New sertraline 50 mg PO DAILY 90 tabs 1RF 90 days F41.1 - Generalized anxiety disorder Refilled albuterol sulfate 90 mcg/actuation 2 puffs inhalation Q4-6H PRN 8.5 grams 3RF shortness of breath or wheezing 30 days J45.20 - Mild intermittent asthma, uncomplicated
[2024-06-05 15:20] VITALS: BP 106/70; PULSE 70; BMI 35.2
== END 2024-06-05 16:03 | disposition home or self-care (01) ==
PROVIDERS: PCP Physician Assistant; Visit Provider Physician Assistant
DX: Z00.00 Encounter for general adult medical examination without abnormal findings (principal); F41.1 Generalized anxiety disorder; J45.20 Mild intermittent asthma, uncomplicated; E78.9 Disorder of lipoprotein metabolism, unspecified

== ENCOUNTER → 2024-06-05 15:05 | Outpatient (BNVA) | payer BC, SELFPAY | PROVIDERS: PCP Physician Assistant; Visit Provider Physician Assistant | DX: Z00.00 Encounter for general adult medical examination without abnormal findings (principal); F41.1 Generalized anxiety disorder; J45.20 Mild intermittent asthma, uncomplicated; E78.9 Disorder of lipoprotein metabolism, unspecified | CPT/HCPCS: 96127; 96160 ==

== ENCOUNTER 2024-10-31 05:15 | Emergency (ER) | payer OTHER, SELFPAY ==
--- NOTE | ~2024-10-31 | XR_ITS ---
CLINICAL HISTORY: SOB 1 view chest x-ray Comparison: None Findings: The lungs are clear. Normal size heart. No acute fracture. IMPRESSION: 1. No acute findings. This document has been electronically signed by: Sangeetha Cote MD on 10/31/2024 07:12:35
[2024-10-31 05:29] VITALS: BP 131/81; PULSE 86; RESP 18; TEMP 36.8; O2SAT 97; BMI 33.6
--- OUTSIDE RECORDS SUMMARY | 2024-10-31 06:16 | XMS_ITS | Patient Health Record ---
Author Organization [employer] [facility] Address [address] [place] [address] Support Name Relationship Address Phone Unavailable Emergency Contact 07/05 [place], [place] [id number] FITZ FIGUEROA Guarantor Unknown [phone] Care Team Providers Care Medical Collections Specialist Name Role Phone ZEENAT HERNANDEZ Primary Care Provider LAURA Gardner Unavailable [phone] Allergies No Known Allergies Reason For Referral No Information Medications Medication SIG (Take, Route, Frequency, Duration) Notes Start Date End Date Status Montelukast Sodium 10 MG 1 tablet Orally Once a day for 30 day(s) Not-Taking Albuterol as needed Active Cetirizine HCl 10 MG TAKE 1 TABLET BY MO UTH EVERY DAY NEEDED Oral for 30 Not-Taking LORazepam 0.5 MG TAKE 1 TABLET BY DANYELL TH DAILY 7 DAYS NEEDED FOR ANXIETY Oral for 7 Not-Takin g metroNIDAZOLE 0.75 % 1 applicatorful at bedtime Vaginal Once a day for 5 day(s) 03/04/2020 Not-Taking Sertraline HCl 25 MG 1 tablet Orally Onc e a day for 30 day(s) 06/19/2021 Not-Taking Prometrium 200 MG 2 capsules at bedtim e Orally Once a day for 12 day(s) 05/26/2021 Not-Taking ZyrTEC Allergy 10 MG 1 tablet Orally Onc e a day for 30 day(s) Active Flovent Diskus 50 MCG/BLIST 1 puff Inhalation Twice a day Not-Taking Sprintec 28 0.25-35 MG-MCG 1 tablet Orally Once a day for 84 days 03/02/2019 Not-Taking Social History Tobacco Use: Social History Observation Description Date Details (start date - stop date) Never Smoker NA - NA Tobacco Use/Smoking Question Answer Notes Are you a nonsmoker Alcohol Screen (Audit-C) Question Answer Notes Did you have a drink contain ing alcohol in the past year? Yes How often did you have a dri nk containing alcohol in the past year? Monthly or less (1 point) How many drinks did you have on a typical day when you were drinking in the past year? 1 or 2 drinks (0 point) How often did you have 6 or more drinks on one occasion in the past year? Never (0 point) Points 1 Interpretation Negative Sexual History Question Answer Notes Had sex in the past 12 months (vaginal, oral, or anal)? Yes with Men only Prevention strategies discussed: Other Tobacco use other than smoking: Question Answer Notes Are you an other tobacco user? No Problems Problem Type SNOMED Code ICD Code Onset Dates Problem Status W/U Status Risk Notes Problem Amenorrhea (03061126) Amenorrhea, unspecified (N91.2) Active confirmed Problem Irregular Menstruation (83710281) Other specified irregular menstruation (N92.5) Active confirmed Problem Irregular menstruation (14389789) Irregular menstruation, unspecified (N92.6) Active confirmed Plan Of Treatment Pending Test Test Name Order Date Test, Urine 12/31/2021 ANTI-HEPATITIS C 03/02/2019 FSH 03/02/2019 HEP. B SURF. AG 03/02/2019 LH 03/02/2019 RH 12/31/2021 THIN PREP,HPV IF ASCUS, CT/GC (21-29YR) 03/02/2019 TSH WITH REFLEX TO FT4 03/02/2019 SYPHILIS TESTING 03/02/2019 PROLACTIN WITH REFLEX TO MONOMERIC 03/02 PROLACTIN WITH REFLEX TO MONOMERIC 03/12 HIV AB-AG 4TH GENERATION 03/02/2019 ENDO/VAG ULTRASOUND OB 01/07/2022 Insurance Providers Payer Name Payer Address Payer Phone Subscriber Number Group Number Insured Name Patient Relationship to Insured Coverage Start Date Coverage End Date [employer] [place] [address] [place] [address] [id number] FITZ POE Self - patient is the insured Medical (General) History Medical History History ICD Code Generalized anxiety disorder F41.1 Irregular menstruation, unspecified N92. 6 Hyperprolactinemia E22.1 Other asthma J45.998 Pure hypercholesterolemia, unspecified E 78.00 COVID-19 U07.1 Surgical History Surgery Date(Month/Year) Hospitalization History Reason Date(Month/Year) 'stomach flu' at age 7 1998
[2024-10-31 06:24] LABS: Influenza A PCR NEGATIVE (Negative); Influenza B PCR NEGATIVE (Negative); Resp Syncy Virus RNA Qual PCR NEGATIVE (Negative); SARS COV2 PCR INHOUSE NEGATIVE (Negative)
--- NOTE | 2024-10-31 07:06 | ED_ITS ---
HPI - SOB/Dyspnea General Chief Complaint: Dyspnea Stated Complaint: SoB Time Seen by Provider: 10/31/24 07:02 Source: patient Mode of arrival: ambulatory Limitations: no limitations History of Present Illness HPI Narrative: This is a 34 years old female patient presented to the emergency department with a chief complaint of shortness of breath wheezing she has a history of asthma. Denies any fever chills vomiting MD elicited complaint: cough Pertinent past history: asthma Onset (ago): week(s) (2) Timing: constant Severity: moderate Exacerbating factors: nothing Relieving factors: nothing Known history of: asthma Related Data Home oxygen amount: none Previous Rx's ?Medication ?Instructions ?Recorded cetirizine 10 mg tablet 10 mg PO DAILY 90 days #90 tabs 05/31/23 trazodone 50 mg tablet 50 mg PO DAILY 4 days #4 tabs 09/26/23 albuterol sulfate 90 mcg/actuation 2 puff inhalation Q4-6H PRN 06/05/24 aerosol inhaler shortness of breath or wheezing 30 days #8.5 grams sertraline 50 mg tablet 50 mg PO DAILY 90 days #90 tabs 06/05/24 prednisone 10 mg tablet 10 mg PO DIRECTED 6 days #12 10/15/24 tabs prednisone 20 mg tablet 60 mg (3 x 20 mg) PO DAILY #12 tabs 10/31/24 Allergies Allergy/AdvReac Type Severity Reaction Status Date / Time Seasonal Allergies Allergy Mild sneezing, Verified 10/31/24 05:31 runny nose cat saliva Allergy Mild hives, Uncoded 06/05/24 15:35 itchy eyes Review of Systems Constitutional: Constitutional: Reports no additional constitutional complaints ENT: Reports system reviewed and no additional complaints, except as documented Respiratory: Respiratory: Reports wheezing Allergic/Immunologic: Allergic/Immunologic: Reports wheezing [facility] Past Medical History [facility] Narrative: Asthma Medical History Panic attacks Lumbar spondylosis Family History Family History Mother High cholesterol Diabetes Fibromyalgia Social History Social History Housing: House Alcohol intake: never Patient Tobacco Use Status: Never used Tobacco e-Cigarette/Vaping Use: Never Used Second Hand Smoke Exposure: No Advance Directives: No Advance Directives Information Provided: Yes service: No Current occupational status: employed Current occupation: [employer] Cognitive needs: No Hearing needs: No Vision needs: No Physical Exam Vital Signs: Vital Signs: Last Vital Signs Temp 97.7 F 10/31/24 08:43 Pulse 97 10/31/24 08:43 Resp 13 10/31/24 08:43 BP 113/71 10/31/24 08:43 Pulse Ox 99 10/31/24 08:43 O2 Del Method Room Air 10/31/24 08:43 BMI result Body Mass Index 33.6 Not acute distress looks comfortable in the stretcher Const: General: cooperative Nutritional Appearance: average body habitus Orientation/consciousness: patient oriented x3 Limitations: no limitations HEENT: Head: Yes normal to inspection General nose exam: Normal external nose present Face and sinus: Yes normal facial exam Neck: Neck: Yes normal visual inspection Chest: Chest palpation & inspection: normal inspection of the chest Resp: Effort & Inspection: normal respiratory effort Auscultation: rhonchi and wheezes Cardio: Jugular venous distension: no JVD Rate: regular rate Rhythm: regular rhythm GI: Inspection: Yes normal to inspection Palpation (GI): Soft to palpation, not firm and nontender Auscultation: normal bowel sounds Skin: General skin exam: no rashes or lesions noted and elasticity normal Lesions: no lesions Rashes: no rashes Neuro: General: patient oriented x3 Course Reevaluation(s) Reevaluation #1: On re-examination much better lungs are clear anticipate discharge Time: 08:30 Medications Administered Discontinued Medications Generic Name Dose Route Start Last Admin Trade Name Vero PRN Reason Stop Dose Admin Albuterol Sulfate 2.5 mg/ 0 mg 10/31/24 07:25 10/31/24 07:30 Albuterol/Ipratropium 3 ml INHALE 10/31/24 07:26 5 dose ONCE ONE Administration Prednisone 60 mg 10/31/24 07:05 10/31/24 07:14 Prednisone 20 Mg Tablet PO 10/31/24 07:06 60 mg ONCE ONE Administration Medical Decision Making Medical Decision Making [facility] Narrative: Patient is here complaining of shortness of breath and wheezing we will administer bronch protocol, we will check viral panel and chest x-ray Differential Diagnosis Differential Diagnoses: The differential diagnosis associated with the presentation includes Asthma exacerbation/bronchitis/pneumonia Admission/Observation Consideration of admission/observation: Escalation of care including admission/observation considered Lab Data MDM Lab Attestation statement: I reviewed the patient's lab results. Labs: Lab Results 10/31/24 Range/Units 05:40 Influenza Type A (PCR) NEGATIVE (Negative) Influenza Type B (PCR) NEGATIVE (Negative) RSV RNA Qual (PCR) NEGATIVE (Negative) SARS-CoV-2 RNA (RT-PCR) NEGATIVE (Negative) Independent Interpretation I performed an independent interpretation of an: Plain X-Ray Interpretation: Not acute disease Radiology Impression Discussion of test interpretation with radiology: I have reviewed the radiologist's reading. Radiologist Impression: [id number] cc: German Torres MD; Deniz López PA-C~ CLINICAL HISTORY: SOB 1 view chest x-ray Comparison: None Findings: The lungs are clear. Normal size heart. No acute fracture. IMPRESSION: 1. No acute findings. This document has been electronically signed by: Sangeetha Cote MD on 10/31/2024 07:12:35 Discharge Plan Discharge Clinical Impression: Asthma exacerbation Qualifiers: Asthma severity: mild Asthma persistence: unspecified Qualified Code(s): J45.901 - Unspecified asthma with (acute) exacerbation Patient Disposition: Home, Self-Care Instructions: Asthma (DC) Additional Instructions: Please follow-up with your primary care physician return to the emergency room if you worse Prescriptions: New prednisone 20 mg tablet 60 mg PO DAILY Qty: 12 0RF No Action trazodone 50 mg tablet 50 mg PO DAILY 4 Days Qty: 4 0RF prednisone 10 mg tablet 10 mg PO DIRECTED 6 Days Qty: 12 0RF Rx Instructions: Take 3 tablets x2 days, 2 tablets x2 days, 1 tablet x2 days cetirizine 10 mg tablet 10 mg PO DAILY 90 Days Qty: 90 2RF sertraline 50 mg tablet 50 mg PO DAILY 90 Days Qty: 90 1RF albuterol sulfate 90 mcg/actuation HFA aerosol inhaler 2 puff inhalation Q4-6H PRN (Reason: shortness of breath or wheezing) 30 Days Qty: 8.5 3RF Interventions: ED Discharge Assessment Last Done: 10/31/24 08:43 Discharge Date/Time: 10/31/24 08:43 Print Language: Polish
[2024-10-31 07:14] VITALS: BP 119/74; PULSE 82; RESP 18; O2SAT 97
[2024-10-31] MEDS: predniSONE 20 MG TABLET 60 MG PO (07:14)
[2024-10-31 07:25] VITALS: PULSE 86; RESP 19; O2SAT 96
[2024-10-31] MEDS: Albuterol Sulfate 2.5 MG, Albuterol/Iprat 2.5/0.5MG 3 ML 3 ML INHALE (07:30)
[2024-10-31 08:35] VITALS: BP 113/71; PULSE 97; RESP 13; TEMP 36.5; O2SAT 99
[2024-10-31 08:43] VITALS: BP 113/71; PULSE 97; RESP 13; TEMP 36.5; O2SAT 99
== END 2024-10-31 08:43 | disposition home or self-care (01) ==
PROVIDERS: Emergency Provider Emergency Medicine; PCP Physician Assistant
DX: J45.901 Unspecified asthma with (acute) exacerbation (principal); Z03.818 Encounter for observation for suspected exposure to other biological agents ruled out; R06.02 Shortness of breath
CPT/HCPCS: 0241U; 71045; 94640; 99284

== ENCOUNTER → 2024-10-31 05:45 | Outpatient (BNV) | payer SELFPAY | PROVIDERS: Emergency Provider Emergency Medicine; PCP Physician Assistant; Visit Provider Radiology Diagnostic Radiology | DX: R06.02 Shortness of breath (principal) | CPT/HCPCS: 71045 ==

== ENCOUNTER 2025-03-24 04:13 | Emergency (ER) | payer SELFPAY ==
--- OUTSIDE RECORDS SUMMARY | 2025-03-20 15:00 | XMS_ITS | Encounter Summary ---
[facility] Address [address] [place] [address] Care Team Providers Care Technician Trainee Name Role Phone Deniz López Primary Care Provider [phone] Reason for Visit * Reason Comments Routine Visit Encounter Details Date Type Department Care Team (Latest Contact Info) Description 03/20/2025 3:00 PM EDT Routine Obstetrics and Gynecology [address] [phone] Genevieve Stringer, MARK ANTHONY [address] [place] [address] Encounter for supervision of other normal in second trimester (Primary Dx); 22 weeks gestation of Social History Tobacco Use Types Packs/Day Years Used Date Smoking Tobacco: Never Smokeless Tobacco: Never Alcohol Use Standard Drinks/Week Comments Not Currently 0 (1 standard drink = 0.6 oz pur e alcohol) Housing Instability Answer Date Recorde d Are you worried that in the next 2 months you may not have stable housing? No 11/15/2024 Food Access & Nutrition Answer Date Rec orded Do you have access to a vari ety of food including fruits and vegetables? Yes 11/15/2024 Access to Healthcare Answer Date Record ed Within the last 3 months, ho w many times did you visit the emergency department for your medical care? 1 11/15/2024 Health Literacy Answer Date Recorded How often do you need to hav e someone help you when you read instructions, pamphlets, or other written material from your doctor or pharmacy? Never 11/15/2024 Caregiver: How often do you need to have someone help you when you read instructions, pamphlets, or other written material from your doctor or pharmacy? Not on file 11/15/2024 Financial Risk Answer Date Recorded How hard is it for you to pa y for the very basics like food, housing, medical care, and air conditioning / heating? Not very hard 11/15/2024 Transportation Answer Date Recorded Has the lack of transportati on kept you from meetings, work, or from getting things needed for daily living? No Has the lack of transportati on kept you from medical appointments or from getting medications? No 11/15/2024 Social Isolation Answer Date Recorded How often do you feel lonely or isolated from th ose around you? Rarely 11/15/2024 Food Risk Answer Date Recorded Within the past 12 months we worried whether our food would run out before we got money to buy more. Never true 11/15/2024 Within the past 12 months th e food we bought just didn't last and we didn't have money to get more. Never true 11/15/2024 Dependent Care Answer Date Recorded Do you need help finding or paying for care for your loved ones. For example, exceptional children teacher or elderly care for an older adult? Yes 11/15/2024 Education Answer Date Recorded Do you think completing more education or training, like finishing a GED, going to college, or learning a trade, would be helpful for you? N/A 11/15/2024 Employment and Income Answer Date Recor ded During the last four weeks, have you been actively looking for work? No 11/15/2024 Living Situation Answer Date Recorded What is your living situation? 0 11/15/2024 Estimated Date of Delivery Comme nts Yes 07/22/2025 Based on Ultraso und Sex and Gender Information Value Date Recorded Sex Assigned at Not on file Legal Sex Female 10:02 AM EDT Gender Identity Not on file Sexual Orientation Not on file documented as of this encounter Last Filed Vital Signs Vital Sign Reading Time Taken Comments Blood Pressure 114/63 03/20/2025 3:08 PM EDT Pulse - - Temperature - - Respiratory Rate - - Oxygen Saturation - - Inhaled Oxygen Concentration - - Weight 77 kg (169 lb 12.8 oz) 03/20/2025 3:08 PM EDT Height - - Body Mass Index 33.16 01/15/2025 1:00 PM EDT documented in this encounter Progress Notes * Genevieve Stringer CNM - 03/20/2025 3:00 PM EDT Subjective Chief Complaint Patient presents with Routine Visit Martina Carr is a 34 y.o. at 22w2d with a working estimated date of delivery of Estimated Date of Delivery: 07/22/25 by Last Menstrual Period who presents for a routine visit. She denies vaginal bleeding or leakage of fluid, denies uc. reports FM Reports pelvic discomfort Reports cold sx Objective Physical Exam Vitals BP: 114/63 Weight: 77 kg (169 lb 12.8 oz) Assessment Heart Rate: 155 Ob check list: Tdap due: n/a Flu vaccine due: n/a If glucose completed: due next visit Gbs: n/a Problem list reviewed. Assessment/Plan Encounter for supervision of other normal in second trimester (Primary) - CBC and differential; Future - Glucose tolerance test, 1h gestation; Future - Treponema pallidum antibody with reflex to RPR and particle agglutination; Future 22 weeks gestation of F/u routinely Nv 3rd trim labs Reviwed common discomforts of with pelvic discomforts use of belly band or girdle and tylenol warm compress Discuss with pcp about prednisone ashtma exacerbated by cold reviewed otc meds to manage documented in this encounter Plan of Treatment Upcoming Encounters Date Type Department Care Team (Late st Contact Info) Description 04/19/2025 3:30 PM EDT Routine Obstetrics and Gynecology - [address] [phone] Tiffany Barrera CNM [address] [place] [address] 05/17/2025 3:00 PM EST Routine Obstetrics and Gynecology - [address] [phone] Tiffany Barrera CNM [address] [place] [address] 06/07/2025 4:00 PM EST Routine Obstetrics and Gynecology - [address] [phone] Anne Cheney, MARK ANTHONY [address] [place] [address] Scheduled Orders Name Type Priority Associated Diagnoses Orde r Schedule CBC and differential Lab Routine Encounter for supervision of other normal in second trimester Expected: 03/20/2025, Expires: 03/20/2026 Glucose tolerance test, 1h gestation Lab Routine Encounter for supervision of other normal in second trimester Expected: 03/20/2025, Expires: 03/20/2026 Treponema pallidum antibody with reflex to RPR and particle agglutination Lab Routine Encounter for supervision of other normal in second trimester Expected: 03/20/2025, Expires: 03/20/2026 documented as of this encounter Visit Diagnoses Diagnosis Encounter for supervision of other normal in second trimester- Primary 22 weeks gestation of documented in this encounter Additional Health Concerns Assessment Noted Time PHQ-9 Depression Total Score: 0 03/20/20 25 2:31 PM EDT documented as of this encounter Care Teams Technician Trainee Relationship Specialty Start Date End Date Deniz López PA [address] [place] [address] PCP - General Physician Foundation Coordinator 01/30/25 documented as of this encounter
--- NOTE | ~2025-03-24 | XR_ITS ---
CLINICAL HISTORY: cough, rigor, 5 mo preg 1 view chest x-ray Comparison: CR - XR CHEST 1V - 10/31/24 05:49 EDT Findings: No consolidation or effusion. Heart size is normal. No acute fracture. IMPRESSION: 1. No acute findings. This document has been electronically signed by: Sidney Townsend MD on 03/24/2025 06:43:43
[2025-03-24 04:23] VITALS: BP 121/69; PULSE 118; RESP 20; TEMP 37.1; O2SAT 99; BMI 33.2
--- NOTE | 2025-03-24 05:01 | ED_ITS ---
HPI - URI/Sore Throat General Chief Complaint: Upper Respiratory Symptoms Stated Complaint: General Medical, can't stop shivering Time Seen by Provider: 03/24/25 04:50 History of Present Illness ED Provider: López Thompson MD HPI Narrative: 34-year-old female 5-1/2 months reporting cough URI symptoms 4 days. Last night with a headache and rigors/shivering subjective fever. Took Tylenol. Related Data Previous Rx's ?Medication ?Instructions ?Recorded cetirizine 10 mg tablet 10 mg PO DAILY 90 days #90 t abs 05/31/23 trazodone 50 mg tablet 50 mg PO DAILY 4 days #4 tab s 09/26/23 prednisone 20 mg tablet 60 mg (3 x 20 mg) PO DAILY # 12 tabs 10/31/24 sertraline 50 mg tablet 50 mg PO DAILY 90 days #90 t abs 11/20/24 albuterol sulfate 90 mcg/actuation 2 puff inhalation Q 4-6H PRN 02/07/25 aerosol inhaler shortness of breath or wheez ing 30 days #8.5 grams prednisone 10 mg tablet 10 mg PO DIRECTED 6 days #12 03/21/25 tabs Allergies Allergy/AdvReac Type Severity Reaction Status Date / Time Seasonal Allergies Allergy Mild sneezing, Verified 03/24/25 04:26 runny nose cat saliva Allergy Mild hives, Uncoded 03/24/25 04:26 itchy eyes PMFSH Past Medical History Medical History Panic attacks Lumbar spondylosis Family History Family History Mother High cholesterol Diabetes Fibromyalgia Social History Social History Housing: House Alcohol intake: never Patient Tobacco Use Status: Never used Tobacco e-Cigarette/Vaping Use: Never Used Second Hand Smoke Exposure: No Advance Directives: No Advance Directives Information Provided: Yes Do you have a plan to hurt others: No Plan Patient : Yes service: No Current occupational status: employed Current occupation: [employer] Cognitive needs: No Hearing needs: No Vision needs: No Physical Exam 2 Exam: Exam: EXAM: Gen: Alert, awake, well appearing, well hydrated. Head: Atraumatic Eyes: Anicteric, Normal conjunctiva. ENT: Moist mucosa, no pallor. ? Neck: Supple. Skin: ?No observable rash or bruising on exposed or examined skin Respiratory: Breathing comfortably, No distress.Clear to auscultation bilaterally, symmetric chest expansion, No wheeze, rales, ronchi. Cardiovascular: Regular rate and rhythm. No murmurs or rub. Well perfused periphery, warm extremities. No edema. ? Abdominal: No focal tenderness. Soft, no objective distension. No palpable masses or obvious organomegaly. ?No guarding, no rebound tenderness or other peritoneal findings. : No flank tenderness. Neuro: Alert. Gross movement of all extremities intact. ? Psych: Calm. Cooperative. MSK: No grossly visible deformity. Vital signs: See flowsheet Vital Signs: Vital Signs: Last Vital Signs Temp 99.6 F 03/24/25 06:25 Pulse 120 H 03/24/25 06:25 Resp 18 03/24/25 06:25 BP 109/63 03/24/25 06:25 Pulse Ox 97 03/24/25 06:25 O2 Del Method Room Air 03/24/25 06:25 BMI result Body Mass Index 33.2 Medications Administered Discontinued Medications Generic Name Dose Route Start Last Admin Trade Name Freq PRN Reason Stop Dose Admin Acetaminophen 650 mg 03/24/25 05:14 03/24/25 06:22 Acetaminophen 325 Mg Tablet PO 03/24/25 05:15 650 mg ONCE ONE Administration Medical Decision Making Medical Decision Making MDM Narrative: Medical Decision Makin-year-old female 5 months with shaking/shivers subjective fever in the setting of a recent URI. Abdomen not tender. No flank pain denies dysuria. There is 0-5 WBCs and mild leuk esterase but no bacteria in the urine. Cultures pending. Patient is comfortable and looks well here without treatment Viral panel negative which is reassuring given that the community has had an uptake in COVID cases. No indication for imaging the patient feels active movement and there has been no abdominal pain vaginal bleeding or passage of fluid Preliminary Favored Differential Diagnosis: Viral syndrome, UTI, pneumonia a jeff additional considered etiologies Testing Interpreted Independently: ?See below for details Radiology or Lab testing Results Reviewed: ?See below for details Consults: ?See below for details Independent Historians/External Chart Reviews: ?See below for details Social Determinants of Health Impacting MDM/Planning: ?See below for details Lab Data 03/24/25 05:19 03/24/25 05:19 Labs: Lab Results 03/24/25 03/24/25 03/24/25 Range/Units 04:32 05:19 05:39 WBC 5.5 (4.8-10.8) X10*3/uL RBC 3.88 L D (4.20-5.50) X10*6/uL Hgb 10.5 L (12.0-16.0) g/dl Hct 31.3 L D (37.0-47.0) % MCV 80.7 (80.0-98.0) fL MCH 27.1 (27.0-33.0) pg MCHC 33.5 (31.0-35.0) g/dl RDW 15.1 (11.0-16.0) % Plt Count 189 D (160-400) X10*3/uL MPV 9.9 (9.4-12.3) fL Immature Gran % (Auto) 1.4 H (0.0-0.4) % Neut % (Auto) 82.1 H (45-73) % Lymph % (Auto) 11.4 L (20-40) % [place] % (Auto) 4.5 (2-11) % Eos % (Auto) 0.2 (0-4) % Baso % (Auto) 0.4 (0-2) % Lymph # (Auto) 0.6 L (1.2-4.9) X10*3/uL [place] # (Auto) 0.3 (0.1-1.2) X10*3/uL Eos # (Auto) 0.0 (0.0-0.4) X10*3/uL Baso # (Auto) 0.0 (0.0-0.2) X10*3/uL Abs Immat Gran (auto) 0.08 H (0.00-0.03) X10*3/uL Absolute Neuts (auto) 4.6 (2.0-8.3) x10*3/uL Absolute Nucleated RBC 0.000 (0.0-0.012) X10*3/uL Nucleated RBC % (auto) 0.0 (0.0-0.2) /100WBC Sodium 138 (135-145) mmol/L Potassium 3.9 (3.3-5.1) mmol/L Chloride 108 (96-108) mmol/L Carbon Dioxide 23 (22-29) mmol/L Anion Gap 11 L (12-20) BUN 9 (9-16) mg/dL Creatinine 0.56 (0.5-1.4) mg/dL Estim Creat Clear Calc 132.3 Estimated GFR > 60 Random Glucose 91 (60-115) mg/dL Calcium 8.4 D (8.4-10.2) mg/dL Total Bilirubin 0.3 (0.0-1.0) mg/dL AST 35 H (5-31) U/L ALT 16 (0-31) U/L Alkaline Phosphatase 106 (39-117) U/L Total Protein 6.4 L (6.5-8.0) g/dL Albumin 3.2 L (3.5-5.0) g/dL Urine Color Yellow Urine Appearance Clear Urine pH 6.5 (5.0-9.0) Ur Specific [place] 1.010 (1.005-1.025) Urine Protein Negative (Neg-Trace) mg/dL Urine Glucose (UA) Negative (Negative) mg/dL Urine Ketones Negative (Negative) mg/dL Urine Blood Negative (Negative) Urine Nitrite Negative (Negative) Ur Leukocyte Esterase Trace H (Negative) Urine RBC 0-2 (0-2) /HPF Urine WBC 0-5 (0-5) /HPF Ur Squamous Epith Cells 0-2 (0-2) /HPF Urine Bacteria None Seen (None Seen) Hyaline Casts 0-2 (0-2) /LPF COVID-19 (SETH) Negative (Negative) COVID-19 Clin Com See Note Influenza Type A (TONY) Negative (Negative) Influenza Type B (TONY) Negative (Negative) Influenza A & B Note See Note Discharge Plan Discharge Clinical Impression: Abnormal urinalysis Patient Disposition: Home, Self-Care Instructions: Fever in Adults (ED) Additional Instructions: _ DISCHARGE DIAGNOSES: Transient episode of shivering or chills in the setting of recent upper respiratory infection/cold Several white blood cells in the urine without overt sign of urinary tract infection HISTORY OF PRESENTATION: Shaking chills resolved without medicine EMERGENCY DEPARTMENT COURSE,TESTS, TREATMENTS: While in the ED today you had viral panel negative for influenza, COVID, RSV. You had urine test which had a few white blood cells but no bacteria this test was not consistent with a urinary tract infection. DISCHARGE MEDICATIONS: ?[We have made no changes to your regular medication regimen] FOLLOW-UP: ?Call your primary or general physician soon as possible to discuss your symptoms, your ED visit and to discuss follow up plans Call your primary doctor INSTRUCTIONS ?& RETURN PRECAUTIONS: If any symptoms change first call your primary physician, if it is after-hours your primary doctors office should have a provider tanner rotary drum continuous process you can speak with. If the symptoms are severe or very concerning to you then call 911 or return to the ED. López Thompson MD Emergency Physician [facility] Prescriptions: No Action trazodone 50 mg tablet 50 mg PO DAILY 4 Days Qty: 4 0RF sertraline 50 mg tablet 50 mg PO DAILY 90 Days Qty: 90 1RF albuterol sulfate 90 mcg/actuation HFA aerosol inhaler 2 puff inhalation Q4-6H PRN (Reason: shortness of breath or wheezing) 30 Days Qty: 8.5 3RF prednisone 10 mg tablet 10 mg PO DIRECTED 6 Days Qty: 12 0RF Rx Instructions: Take 3 tablets x2 days, 2 tablets x2 days, 1 tablet x2 days prednisone 20 mg tablet 60 mg PO DAILY Qty: 12 0RF cetirizine 10 mg tablet 10 mg PO DAILY 90 Days Qty: 90 2RF Interventions: ED Discharge Assessment Last Done: 03/24/25 06:25 Discharge Date/Time: 03/24/25 06:38 Print Language: Yoruba
[2025-03-24 05:05] LABS: COVID-19 Test Negative (Negative); IDNOW Serial# 55D5AD1C; IDNOW Serial# 58CA691E; Influenza B2 Negative (Negative)
[2025-03-24 05:24] LABS: MANUAL DIFF FLAG NO
[2025-03-24 05:25] LABS: Hematocrit 31.3 % (37.0-47.0); Hemoglobin 10.5 g/dl (12.0-16.0); Imm Gran Abs Auto 0.08 X10*3/uL (0.00-0.03); Imm Gran Pct Auto 1.4 % (0.0-0.4); Lymphocytes Absolute Auto 0.6 X10*3/uL (1.2-4.9); Mean Corpuscular HGB Conc 33.5 g/dl (31.0-35.0); Mean Corpuscular Hemoglobin 27.1 pg (27.0-33.0); Mean Corpuscular Volume 80.7 fL (80.0-98.0); NRBC Abs Auto 0.000 X10*3/uL (0.0-0.012); NRBC Pct Auto 0.0 /100WBC (0.0-0.2); Platelet Count 189 X10*3/uL (160-400); Red Blood Count 3.88 X10*6/uL (4.20-5.50); White Blood Count 5.5 X10*3/uL (4.8-10.8)
[2025-03-24 05:39] LABS: Alanine Aminotransferase 16 U/L (0-31); Albumin Level 3.2 g/dL (3.5-5.0); Alkaline Phosphatase 106 U/L (39-117); Anion Gap 11 (12-20); Aspartate Amino Transferase 35 U/L (5-31); Blood Urea Nitrogen 9 mg/dL (9-16); Calcium 8.4 mg/dL (8.4-10.2); Carbon Dioxide 23 mmol/L (22-29); Chloride 108 mmol/L (96-108); Creatinine Clr Calc Pharmacy 132.3; Estimated Glomerular Filt Rate > 60; Potassium 3.9 mmol/L (3.3-5.1); Sodium 138 mmol/L (135-145); Total Protein 6.4 g/dL (6.5-8.0)
[2025-03-24 05:46] LABS: Appearance Urine Clear; Glucose Urine UA Negative (Negative); PH 6.5 (5.0-9.0); Specific Gravity - Urine 1.010 (1.005-1.025); UMIC TRIGGER UACC YES
--- OUTSIDE RECORDS SUMMARY | 2025-03-24 05:50 | XMS_ITS | Clinical Summary ---
Author Organization [facility] [address] [place] [address] [place] [phone] Phone Care Team Providers Care Gifted Teacher Name Role Phone Deniz López Primary Care Provider [phone] Allergies No known active allergies Medications aspirin 81 mg EC tabletIndicatio ns:Supervision of other normal , antepartum Take 2 tablets (162 mg total) by mouth 1 (one) time each day. 60 tablet 6 5 01/16/20 26 Active vitamin iron fum-folic acid 27-0.8 mg per tabletIndicatio ns:Supervision of other normal , antepartum Take 1 tablet by mouth 1 (one) time each day. 30 each 11 5 01/16/20 26 Active albuterol HFA (PROAIR HFA ; PROVENTIL HFA ; VENTOLIN HFA) 90 mcg/actuation inhaler INHALE 2 PUFFS EVERY 4-6 HOURS NEEDED FOR SHORTNESS OF BREATH OR WHEEZING 5 Active Active Problems Problem Noted Date Diagnosed Date care, subsequent in second tr imester 01/30/2025 Overview (01/30/2025): [facility] [address] [place] [address] ([phone]) 2. Delivery site: [facility] 3. Mobile Mommas: N/A 4. Dating criteria: early ultrasound 5. Blood type: O-Positive 6. Genetic screening: Date: Result: Panorama: Declined Horizon: Declined Nuchal: Too late to be ordered Survey: MSAFP: 6. GBS: Date: 7. FOB name: Faith 8. Plans A. Epidural or other pain management - B. Labor support identified - C. Tdap - Date: Flu - Date: D. Breast or Bottle feed: E. Baby's name - F. Circumcision - 9. Hospital Course: Maternal varicella, non-immune 01/23/2025 Overview (01/23/2025): Offer Vaccine PP Urinary tract infection in m other during first trimester of 01/23/2025 Overview (01/23/2025): Treated- TIM in 1 month Mild intermittent asthma with acute exacerbation 01/15/2025 Obesity in 01/15/2025 Overview (01/15/2025): BMI- 32 HgbA1C and 1 hour GTT at initial labs ASA 162mg at 12 weeks until delivery- Ordered Detailed anatomy ultrasound Repeat GTT 24-28 weeks if early is normal Pre-preg BMI 35-39.9: NST weekly at 37 weeks Growth US at 32 and 36 weeks for BMI >40 BMI of 50 by 28wks transfer to [facility] DVT prophylaxis- Lovenox if CS and BMI >35 Anxiety and depression 01/15/2025 Overview (01/15/2025): EPDS at IP- 4 Stable on no meds or seeing a therapist. Hx of being on sertraline in the past. Estimated Date of Delivery Comme nts Yes 07/22/2025 Based on Ultraso und Encounters Date Type Department Care Team Description 03/20/2025 3:00 PM EDT Routine Obstetrics and Gynecology - [address] [phone] Genevieve Stringer CNM Encounter for supervision of other normal in second trimester (Primary Dx); 22 weeks gestation of 03/20/2025 Telephone Obstetrics and Gynecology - [address] [phone] Tiffany Barrera CNM 03/07/2025 2:00 PM EDT Ancillary Procedure Maternal Medicine - [address] [phone] Obesity affecting in second trimester; Encounter for screening for malformations 02/18/2025 3:00 PM EDT Routine Obstetrics & Gynecology - [address] [phone] Genevieve Stringer CNM Encounter for supervision of other normal in second trimester (Primary Dx); 18 weeks gestation of 01/30/2025 10:00 AM EDT Clinical Support Obstetrics and Gynecology - [address] [phone] care, subsequent in second trimester (Primary Dx) 01/15/2025 2:00 PM EDT Initial Obstetrics and Gynecology - [address] [phone] Tiffany Barrera CNM from Last 3 Months Immunizations Name Administration Dates Next Due Hepb Recombinant, 3-antigen, (oh)3 03/15/2023 Influenza Quadrivalent, 0.5m l, preservative free (Fluarix; FluLaval; Fluzone) ages 6mo and older (Afluria) 3yo and older 03/30/2023 Surgical History Surgery Date Site/Laterality Comments NO PAST SURGERIES Medical History Medical History Date Comments Asthma Albuterol PRN Anemia PCOS (polycystic ovarian syndrome) Family History Medical History Relation Name Comments No Known Problems Brother No Known Problems Daughter Lylah No Known Problems Father Dementia Maternal Grandfather early dementia Maternal Grandmother Atrial fibrillation Mother Diabetes Mother Fibromyalgia Mother No Known Problems Paternal Grandfather Stomach cancer Paternal Grandmother No Known Problems Sister Breast cancer Neg Hx Ovarian cancer Neg Hx Uterine cancer Neg Hx Relation Name Status Comments Brother Daughter Lylah Father Alive Maternal Grandfather Maternal Grandmother Mother Alive Paternal Grandfather Paternal Grandmother Sister Social History Tobacco Use Types Packs/Day Years Used Date Smoking Tobacco: Never Smokeless Tobacco: Never Tobacco Cessation:Counseling Given: Not Answered Alcohol Use Standard Drinks/Week Comments Not Currently [...] care for your loved ones. For example, child watch attendant or elderly care for an older adult? [...] on file Sexual Orientation Not on file Obstetrics History Para Term AB IAB SAB Ectopic Multiple Livin g Live Births 2 1 1 0 1 1 Date Outcome GA Total Labor Labor/2nd/3rd Weight Sex Type Anes PTL Misty A1 A5 Name Clin 08/12 Term F Vag-S pont Epidura l Living Current Summary Episode Dates Number of Fetuses Estimated Date of Delivery 01/15/2025 - Present (03/24/2025) 1 07/22/2025 (set by Shahnaz Plascencia RN on 01/15/2025 based on Ultrasound on 11/28/2024) Dating Summary Based On JASON GA Diff Last Menstrual Period on 09/27/2024 (Approximate ) 07/04/2025 +2w4d Ultrasound on 11/28/2024 07/22/2025 Working GA:6w2d Alternate JASON Entry 07/04/2025 +2w4d Comment:Date entered prior t o episode creation Overview and Plan :[place] Delivery Plans Post-Delivery Plans Planned delivery method:Vaginal Feeding intentions:Exclusive Planned delivery location:[facility] Circumcis ion requested:Provider Performed Planned anesthesia:Epidural Acceptable blood products:All Vitals Pregravid Weight Height TWG (As of 03/24/2025) Pregrav id BMI 77.1 kg (170 lb) 1.524 m (60 ) -0.091 kg (-3.2 oz) 33. 20 Notes Progress Notes - Routine Pre - 03/20/2025 - GA:22w2d 03/20/2025 - 22w2d - Genevieve Stringer CNM Subjective Chief Complaint Patient presents with Routine Visit Fitz Carr is a 34 y.o. at 22w2d [...] by cold reviewed otc meds to manage Progress Notes - Routine Pre - 02/18/2025 - GA:18w0d 02/18/2025 - w0d - Genevieve Stringer CNM Subjective Chief Complaint Patient presents with Routine Visit Fitz Carr is a 34 y.o. at 18w0d with a working estimated date of delivery of Estimated Date of Delivery: 07/22/25 by Last Menstrual Period who presents for a routine visit. She denies vaginal bleeding or leakage of fluid, denies uc. reports FM Objective Physical Exam Vitals BP: 114/61 (p 91) Weight: 77.6 kg (171 lb) Fundal Height (cm): (2fb below u) Heart Rate: 158 Ob check list: Tdap due: n/a Flu vaccine due: n/a If glucose completed: neg result Gbs: n/a Problem list reviewed. Assessment/Plan Encounter for supervision of other normal in second trimester (Primary) 18 weeks gestation of F/u routinely 02/18/2025 - d - Stephanie Stafford MA OB F/UP Progress Notes - Clinical [place] pport - 01/30/2025 - GA:15w2d 01/30/2025 - 15w2d - Cary Nuñez RN Fitz Carr is a 34 y.o. old female at 15w2d. This is Planned. The patient feels happy about the . The FOB is supportive. His name is Faith. This is their 2nd child together. They have a daughter Pavel, who is 2 years old. Patient has already had her IP. Had to have her work up after IP due to work scheduling conflict, so labs have already been done. Patient's last menstrual period was Patient's last menstrual period was 09/27/2024 (approximate). (exact date)., which would make her currently 15w2d with an Estimated Date of Delivery: 07/22/25. She is certain of her date. An ultrasound has already been performed on 11/28/2024, JASON assigned by 1st trimester ultrasound Patient has significant history of: PCOS, asthma, Dep/Anx-no meds OB Past Medical History: Have you had or do you currently have: Diabetes? No Hypertension? No Heart disease, Mitral valve Prolapse, or Rheumatic fever? No An Autoimmune disease such as Lupus or Rheumatoid Arthritis? No Epilepsy, Seizures, or Spells? No Migraine Headaches? No Stroke or loss of function or sensation? No Additional Questions: Have you ever been treated for anxiety and/or depression? Yes- earlier this year was on sertraline-no longer taking-feels keeps her level-denies ppd Are you having problems with crying spells or loss of self-esteem? No Have you ever required psychiatric care? No Have you ever had hepatitis, liver disease or jaundice? No Have you ever been treated for blood clots in your veins, deep venous thrombosis, inflammation in the veins, thrombosis, phlebitis, pulmonary embolism or varicosities? No Have you had excessive bleeding after surgery or dental work? No Do you bleed more than other women after a cut or scratch? No Do you have a history of anemia? Yes- with previous Have you ever had Thyroid problems or taken Thyroid medications? No Do you have any other Endocrine Problems (ie. PCOS)? Yes-diagnosed with PCOS 5 yrs ago. Have you ever been in a major accident or suffered serious trauma? No Within the last year, has anyone hit, slapped, kicked or otherwise hurt you? No In the last year, has anyone forced you to have sex when you didn't want to? No Do you feel safe at home? Yes Have you ever received a blood transfusion? No Would you refuse a blood transfusion if a doctor judged to be medically necessary? No Would you rather than receive a blood transfusion? No If you answered yes to the above questions, is this for yarsanism reasons? N/A Do you know what your blood type is or if you are Rh Negative? no Have you ever had abnormal antibodies in your blood? no Have you ever had asthma? Yes- had asthma attack in late October- has rescue inhaler Have you every had Tuberculosis? No Have you ever had any breast problems? No Have you ever breast fed? NO- tried -baby would not latch Have you ever had any gynecological surgical procedures such as cervical conization, LEEP procedure, Laser treatment, cryosurgery of the cervix or dilation and curettage, etc? No Have you had any other surgical procedures? No Have you ever been hospitalized overnight for a non-surgical reason excluding normal delivery? No Have you ever had anesthesia complications? No Have you ever had an abnormal pap smear? No Do you have a history of abnormalties of the uterus? No Did your mother take MANI or any other hormones when she was with you? No Did it take more than one year to become ? No Have you ever been evaluated or treated for infertility? No Is there a history of medical problems in your family which you feel might adversely affect your health or ? Yes-just the hx of adult onset diabetes Do you have any other problems we have not asked you about which you feel may be important for us to know for this ? No Do you currently have any of the following symptoms since your last menstrual period: Abdominal pain, blood in the stool or urine, chest pain, shortness of breath, coughing or vomiting up blood, your heart racing or skipping beats, nausea and/or vomiting, pain on urination, or vaginal discharge or vaginal bleeding? No Genetic Screening/Teratology Counseling- Includes patient, baby's father, or anyone in either family with: Patient's age 35 years or older as of estimated date of delivery No Thalassemia (Tunisian, Urdu, Mediterranean, or background): MCV less than 80 No Neural tube defect (Meningomyelocele, Spina bifida, or Anencephaly) No Congenital heart defect No Down syndrome No Adam-Sachs (Ashkenazi Yarsani, Cajun, Mauritian Arroyo) No Marleni disease (Ashkenazi Yarsani) No Familial dysautonomia (Ashkenazi Yarsani) No Sickle cell disease or trait () No Hemophilia or other blood disorders No Muscular dystrophy No Cystic fibrosis No Marisela's chorea No Intellectual disability and/or autism No If yes, was the person tested for Fragile X? N/A Other inherited genetic or chromosomal disorder No Maternal metabolic disorder (eg. Type 1 diabetes, PKU) No Patient or baby's father had child with defects not listed above No Recurrent loss, or a stillbirth YES-cousin had stillbirth Medications (including supplements, vitamins, herbs, or OTC drugs)/illicit/recreational drugs/alcohol since last menstrual period Yes-pnv and asa, antibiotics, albuterol prn If yes, agent(s) and strength/dosage: Any other No OB Infection History: Do you object to being tested for Hepatitis B? No Do you object to being tested for HIV? No Do you feel that you are at high risk for coming contact with the AIDS virus? No Have you ever been treated for tuberculosis? No Have you ever received the BCG vaccine? No Have you ever had a positive skin test for Tuberculosis? No Do you live with someone who has Tuberculosis? No Have you ever been exposed to Tuberculosis? No Do you have Genital Herpes? No Does your partner have Genital Herpes? No Have you had a rash or viral illness since your last period? No Have you ever had Gonorrhea, Chlamydia, Syphilis, Venereal Warts, Trichomoniasis, Pelvic Inflammatory Disease (PID) or any other sexually transmitted disease? No Do you know if you are a Group B Streptococcus Carrier? no Did you have the Chicken Pox/Varicella? no Were you vaccinated against Chicken Pox/Varicella? yes Have you had any other infectious diseases? No Pt had all labs done and all were WNL Fitz Carr has been instructed on the following: random urine drug screening and an initial urine drug screen has been ordered. Fitz Carr has also been informed of the piano tuner provider recommendation for first trimester nuchal lucency testing to be performed during her . Fitz Carr has also been made aware of the time sensitive nature for this testing to be completed. . The patient now has a gestational age of 15w2d. The patient is beyond 14 weeks gestation and is too late for the first trimester screening. Ethnicity Based Genetic Testing has been reviewed and the [employer] information sheet has been provided to the patient in their After Visit Summary. The patient was also advised that genetic testing may not be covered by all insurances. The patients states that they understand this information. The patient states that she has not had the genetic screening for we need to check if patient has been tested for cystic fibrosis and sickle cell. done in the past during a previous . She was previously seen at [facility]. She will obtan records from them. The patient has agreed that she does not want genetic testing for Horizon 14 The following Labs have been ordered: Obstetric Panel Already done Electronically signed by: Cary Nuñez RN 01/30/25 10:15 AM EDT Progress Notes - Initial Pre - 01/15/2025 - GA:13w1d 01/15/2025 - 13w1d - Tiffany Barrera CNM OB 12 week appt IP: S: Fitz is a 34 y.o. year old here for IP visit with her , Faith. Her is planned. She and the father of the baby are happy. 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 Will get PN labs today. Denies SOB but does have a hx of mild intermittent asthma. She will follow up with pcp regarding possibly starting controller Inhaler in addition to PRN inhailer Patient's last menstrual period was 09/27/2024 (approximate). She is certain of her LMP with irregular cycles. is currently dated by 1st trimester ultrasound only. Taking PNV OTC- asking for script She complains of none . N/V subsided. She denies vaginal bleeding or cramping. Flu vaccine: not indicated at today's visit S=D on Bimanual, FHT- 160 O: Blood pressure 111/59, pulse 101, resp. rate 12, height 1.524 m (60 ), weight 74.4 kg (164 lb), last menstrual period 09/27/2024. See OB physical and labs. Vitals BP: 111/59 Weight: 74.4 kg (164 lb) No results found for: ABORH No results found for: RH A: at 13w1d weeks gestation. 1. Supervision of other normal , antepartum 2. Screening for cervical cancer 3. Obesity in 4. Anxiety and depression 5. Encounter for screening of mother 6. Vaginal discharge P: Pap obtained today. Genprobe obtained today. Oriented to THoNE MG and anticipated course. Discussed collaborative practice and [facility] delivery. Reviewed healthy eating and normal weight gain in . Encouraged patient to push PO fluids. Written listed OB safe medications given. Counseled about warning signs of the first trimester and how to contact environmental resource specialist provider. Discussed the benefits of breast feeding and strongly encouraged to consider this. Counseled regarding the diagnosis of anomalies. She was offered a referral to maternal medicine for nuchal lucency/Comstock testing. She declines the referral. RTO 4 weeks. The patient does not require anesthesia consult. This patient's VTE risk status is low. [place] Depression Scale: In the Past 7 Days I have been able to laugh and see the funny side of things.: As much as I always could I have looked forward with enjoyment to things.: As much as I ever did I have blamed myself unnecessarily when things went wrong.: Not very often I have been anxious or worried for no good reason.: Hardly ever I have felt scared or panicky for no good reason.: No, not much Things have been getting on top of me.: No, most of the time I have coped quite well I have been so unhappy that I have had difficulty sleeping.: Not at all I have felt sad or miserable.: No, not at all I have been so unhappy that I have been crying.: No, never The thought of harming myself has occurred to me.: Never [place] Depression Scale Total: 4 [place] SCREENING CHARGE (Clinic Only): [id number] Tiffany Barrera CNM on 01/15/2025 at 3:31 PM EDT 01/15/2025 - 13w1d - Shara Mcgarry MA [place] Depression Scale: In the Past 7 Days I have been able to laugh and see the funny side of things.: As much as I always could I have looked forward with enjoyment to things.: As much as I ever did I have blamed myself unnecessarily when things went wrong.: Not very often I have been anxious or worried for no good reason.: Hardly ever I have felt scared or panicky for no good reason.: No, not much Things have been getting on top of me.: No, most of the time I have coped quite well I have been so unhappy that I have had difficulty sleeping.: Not at all I have felt sad or miserable.: No, not at all I have been so unhappy that I have been crying.: No, never The thought of harming myself has occurred to me.: Never [place] Depression Scale Total: 4 [place] SCREENING CHARGE (Clinic Only): [id number] Last Filed Vital Signs Vital Sign Reading Time Taken Comments Blood Pressure 114/63 03/20/2025 3:08 PM EDT Pulse 101 01/15/2025 1:00 PM EDT Temperature - - Respiratory Rate 12 01/15/2025 1:00 PM EDT Oxygen Saturation - - Inhaled Oxygen Concentration - - Weight 77 kg (169 lb 12.8 oz) 03/20/2025 3:08 PM EDT Height 152.4 cm (5') 01/15/2025 1:00 PM EDT Body Mass Index 33.16 01/15/2025 1:00 PM EDT Plan of Treatment Upcoming Encounters Date Type Department Care Team (Late st Contact Info) Description 04/19/2025 3:30 PM EDT Routine Obstetrics and Gynecology - [address] [phone] Tiffany Barrera, [facility] [address] [place], [place] 05/17/2025 3:00 PM EST Routine Obstetrics and Gynecology - [address] [phone] Tiffany Barrera, [facility] [address] [place], [place] 06/07/2025 4:00 PM EST Routine Obstetrics and Gynecology - [address] [phone] Anne Cheney, [facility] [address] [place], [place] Health Maintenance Due Date Last Done Comments DTaP,Tdap,and Td Vaccines (1 - Tdap) 10/27/2011 Pneumococcal Vaccine: Pediat rics (0 to 5 Years) and At-Risk Patients (6 to 49 Years) (1 of 2 - PCV) 10/27/2011 Hepatitis B Vaccines (2 of 3 - 19+ 3-dose series) 04/12/2023 03/15/2023 Cholesterol Screening (Lipid Panel) 11/14/2024 COVID-19 Vaccine (2 - 2024-2 6 season) 2025 05/10/2023 Influenza Vaccine (#1) 2025 03/30/2023 RSV Immunization Adult Patie nts (1 - Risk 1-dose series) 05/27/2025 Social Influencers of Health Screening 11/15/2025 11/15/2024 Cervical Cancer Screening: HPV 01/15/2030 01/15/2025 HIV Screening Completed 01/17/2025 Hepatitis C Screening Completed 01/17/2025 Depression Screening Completed 03/20/2025 HIB Vaccines Aged Out No longer eligi ble based on patient's age to complete this topic HPV Vaccines Aged Out No longer eligi ble based on patient's age to complete this topic Hepatitis A Vaccines Aged Out No long er eligible based on patient's age to complete this topic IPV Vaccines Aged Out No longer eligi ble based on patient's age to complete this topic Meningococcal ACWY Vaccine Aged Out N o longer eligible based on patient's age to complete this topic Meningococcal B Vaccine Aged Out No l onger eligible based on patient's age to complete this topic RSV Immunization Patients Un prabhjot 20 months Aged Out No longer eligible b ased on patient's age to complete this topic Procedures Procedure Name Priority Date/Time Associated Diagnosis Comments US OB DETAILED SINGLE OR FIRST GESTATION Routine 03/07/2025 3:00 PM EDT Obesity affecting in second trimester Encounter for screening for malformations GTT GESTATIONAL 1 HOUR Routine 3:18 PM EDT Supervision of other normal , antepartum CBC WITH AUTO DIFFERENTIAL Routine 01/17/2025 3:18 PM EDT Supervision of other normal , antepartum Encounter for screening of mother HEMOGLOBIN A1C Routine 01/17/2025 3:18 PM EDT Supervision of other normal , antepartum TYPE AND SCREEN Routine 01/17/2025 3:18 PM EDT Supervision of other normal , antepartum Encounter for screening of mother GLUCOSE TOLERANCE TEST, 1H GESTATION Routine 01/17/2025 3:18 PM EDT Supervision of other normal , antepartum TREPONEMA PALLIDUM ANTIBODY WITH REFLEX TO RPR AND PARTICLE AGGLUTINATION Routine 01/17/2025 3:18 PM EDT Supervision of other normal , antepartum Encounter for screening of mother RUBELLA ANTIBODY IGG Routine 01/17/2025 3:18 PM EDT Supervision of other normal , antepartum Encounter for screening of mother HIV 1, 2 ANTIBODY, P24 ANTIGEN WITH REFLEX TO DIFFERENTIATION Routine 01/17/2025 3:18 PM EDT Supervision of other normal , antepartum Encounter for screening of mother HEPATITIS C ANTIBODY Routine 01/17/2025 3:18 PM EDT Supervision of other normal , antepartum Encounter for screening of mother DRUG ABUSE SCREEN EXPANDED WITH REFLEX CONFIRMATION, URINE Routine 01/17/2025 3:18 PM EDT Supervision of other normal , antepartum Encounter for screening of mother CBC AND DIFFERENTIAL Routine 01/17/2025 3:18 PM EDT Supervision of other normal , antepartum Encounter for screening of mother HEPATITIS B SURFACE ANTIGEN WITH CONFIRMATION Routine 01/17/2025 3:18 PM EDT Supervision of other normal , antepartum Encounter for screening of mother VARICELLA ZOSTER ANTIBODY IGG Routine 01/17/2025 3:18 PM EDT Supervision of other normal , antepartum Encounter for screening of mother CULTURE URINE Routine 01/17/2025 3:18 PM EDT Supervision of other normal , antepartum Encounter for screening of mother TRICHOMONAS VAGINALIS ANTIGEN Routine 01/15/2025 3:25 PM EDT Supervision of other normal , antepartum Vaginal discharge WET PREP, GENITAL Routine 01/15/2025 3:2 5 PM EDT Supervision of other normal , antepartum Vaginal discharge CHLAMYDIA TRACHOMATIS AND NEISSERIA GONORRHOEAE BY TMA, THINPREP Routine 01/15/2025 2:27 PM EDT Supervision of other normal , antepartum Screening for cervical cancer PAP SMEAR Routine 01/15/2025 2:27 PM EDT Supervision of other normal , antepartum Screening for cervical cancer HPV WITH REFLEX GENOTYPE Routine 01/15/2025 2:27 PM EDT Supervision of other normal , antepartum Screening for cervical cancer TRICHOMONAS VAGINALIS PCR Routine 01/15/2025 2:27 PM EDT Supervision of other normal , antepartum Screening for cervical cancer from Last 3 Months Results * US OB Detailed Single or First Gestation (03/07/2025 3:00 PM EDT) Anatomical Region Laterality Modality Body Ultrasound 03/07/2025 2:47 PM EDT Narrative 03/14/2025 10:48 AM EDT OBSTETRICS REPORT (Signed Final 03/14/2025 10:48 am) PATIENT INFO: ID #: [id number] : [id number] (34 yrs)(F) Name: FITZ CARR Visit Date: 03/07/2025 02:47 pm PERFORMED BY: Attending: Caridad Cleveland MD Performed By: Danie Crowell RDMS Referred By: Tiffany Barrera CNM Ref. Address: [address] [place] [id number] Location: [facility]) SERVICE(S) PROVIDED: [place] Level II complete (Targeted OB) 77574 INDICATIONS: Obesity complicating , second O99.212 trimester Encounter for screening for Z36.3 malformations 20 weeks gestation of Z3A.20 TECHNIQUE/SCAN QUALITY: Technique: Transabdominal Scan Satisfactory Quality: OB HISTORY: : 2 Term: 1 Livin VITAL SIGNS: Weight (lb) Height BMI 171 5'0 33.39 EVALUATION: Number Of Fetuses: 1 Heart Rate(bpm): 161 Cardiac Activity: Observed Presentation: Breech Placenta Location: Posterior Appearance: Grade 1 Relation to CVX: No previa Cord Insertion: Normal appearance Amniotic Fluid TIFF FV: Within Normal Limits Comment: A >2 x 2 cm pocket of fluid is noted. BIOMETRY: BPD: 49.5 mm G.Age: 21w 0d 72 % HC: 190.1 mm G.Age: 21w 2d 79 % AC: 164.7 mm G.Age: 21w 4d 78 % FL: 33.8 mm G.Age: 20w 4d 48 % HUM: 35.4 mm G.Age: 22w 2d > 95 % CER: 20.9 mm G.Age: 19w 6d 38 % NFT: 5.55 mm NB: 7.46 mm 65 % > 1 MoM LV: 5.5 mm CM: 4.3 mm OOD: 34.7 mm G.Age: 20w 5d 66 % CI: 69.15 % 70 - 86 FL/HC: 17.8 % 16.8 - 19.8 HC/AC: 1.15 1.09 - 1.39 FL/BPD: 68.3 % FL/AC: 20.5 % 20 - 24 Est. FW: 400 gm 0 lb 14 oz 82 % GESTATIONAL AGE: LMP: 23w 0d Date: 09/27/24 JASON: 07/04/25 U/S Today: 21w 1d JASON: 07/17/25 Best: 20w 3d Det. By: Early JASON: 07/22/25 Ultrasound (11/28/24) DETAILED ANATOMY: Head / Neck Cranial Vault: Normal appearance Cavum Septi Pellucidi: Normal appearance Parenchyma: Normal appearance R. Lat. Ventricle: Normal appearance L. Lat. Ventricle: Normal appearance Corpus Callosum: Suboptimal views Midline Falx: Normal appearance R. Choroid Plexus: Normal appearance L. Choroid Plexus.: Normal appearance Cerebellum: Normal appearance CCisterna Magna: Normal appearance Nuchal Fold: Normal appearance Neck: Normal appearance Face Face Profile: Normal appearance Nasal Bone: Normal appearance Coronal Face: Normal appearance Lips: Normal appearance Nose: Normal appearance Lenses: Normal appearance Orbits: Normal appearance Palate: Not vizualized Heart Cardiac Activity: Normal appearance Cardiac Rhythm: Normal appearance 4 Chamber View: Normal appearance R. Outflow Tract: Normal appearance L. Outflow Tract: Normal appearance Interventr. Septum: Normal appearance 3 Vessel View: Normal appearance 3V Trachea View: Normal appearance Cardiac Situs: Normal appearance Aortic Arch: Normal appearance SVC: Normal appearance IVC: Normal appearance Ductal Arch: Normal appearance Crossing G. Ves.: Normal appearance Comment: The cardiac axis is 34.08 degrees Thorax Lungs: Normal appearance Cardiac [place]: Normal appearance Diaphragm: Normal appearance Thoracic Contour: Normal appearance Abdomen Situs: Normal appearance Stomach: Normal appearance Bowel: Normal appearance Liver: Normal appearance Abdominal Wall: Normal appearance Urinary Bladder: Normal appearance R. Kidney: Normal appearance L. Kidney: Normal appearance R. Renal Artery: Normal appearance L. Renal Artery: Normal appearance Umbilical Cord: Normal Appearance UC Vessel Num.: Normal 3VC Cord Insertion: Normal appearance Spine Cervical: Normal appearance Thoracic: Normal appearance Lumbar: Normal appearance Sacral: Normal appearance Shape / Curvature: Normal appearance Over. Soft Tissue: Normal appearance Vertebral Body: Normal appearance Extremities R. Humerus: Normal appearance L. Humerus: Normal appearance R. Forearm: Normal appearance L. Forearm: Normal appearance R. Hand: Normal appearance L. Hand: Normal appearance R. Femur: Normal appearance L. Femur: Normal appearance R. Lower Leg: Normal appearance L. Lower Leg: Normal appearance R. Foot: Normal appearance L. Foot: Normal appearance Other Genitalia: Male CERVIX UTERUS ADNEXA: Cervix Within Normal Limits Abdominally Right Ovary Size(cm) 2.34 x 1.73 x 1.47 Vol(ml): 3.12 Normal in size and appearance. It is found between the uterus and the pelvic sidewall. Left Ovary Size(cm) 2.98 x 2.28 x 2.09 Vol(ml): 7.44 Normal in size and appearance. It is found between the uterus and the pelvic sidewall. COMMENTS: Ms. Carr is being seen for a detailed ultrasound for obesity. - Her medical history is significant for asthma, anxiety and depression. - Her obstetrical history is significant one term vaginal delivery. - Aneuploidy screening was declined in the . - Ultrasound findings: The biometry and anatomical survey are appropriate for the gestational age. There are no markers of aneuploidy. - The patient declined vaginal ultrasound to assess cervical length for risk of . - Plan: No additional ultrasounds have been scheduled. Follow up as clinically indicated. This ultrasound was read remotely by the physician. Thus, the physician did not communicate/discuss the findings or the limitations of this ultrasound with the patient. This ultrasound does not detect all forms of congenital abnormalities. A normal ultrasound does not guarantee normal function. Caridad Cleveland MD Electronically Signed Final Report 03/14/2025 10:48 am Procedure Caridad Osorio MD - 03/14/2025 OBSTETRICS REPORT (Signed Final 03/14/2025 10:48 am) PATIENT INFO: ID #: [id number] : [birth year] (34 yrs)(F) Name: FITZ CARR Visit Date: 03/07/2025 02:47 pm PERFORMED BY: Attending: Caridad Cleveland MD Performed By: Danie Crowell [facility] Referred By: Tiffany Barrera [facility] Ref. Address: [address] [place] [id number] Location: [facility]) SERVICE(S) PROVIDED: US Level II complete (Targeted OB) 74637 INDICATIONS: Obesity complicating , second O99.212 trimester Encounter for screening for Z36.3 malformations 20 weeks gestation of Z3A.20 TECHNIQUE/SCAN QUALITY: Technique: Transabdominal Scan Satisfactory Quality: OB HISTORY: : 2 Term: 1 Livin VITAL SIGNS: Weight (lb) Height BMI 171 5'0 33.39 EVALUATION: Number Of Fetuses: 1 Heart Rate(bpm): 161 Cardiac Activity: Observed Presentation: Breech Placenta Location: Posterior Appearance: Grade 1 Relation to CVX: No previa Cord Insertion: Normal appearance Amniotic Fluid TIFF FV: Within Normal Limits Comment: A >2 x 2 cm pocket of fluid is noted. BIOMETRY: BPD: 49.5 mm G.Age: 21w 0d 72 % HC: 190.1 mm G.Age: 21w 2d 79 % AC: 164.7 mm G.Age: 21w 4d 78 % FL: 33.8 mm G.Age: 20w 4d 48 % HUM: 35.4 mm G.Age: 22w 2d > 95 % CER: 20.9 mm G.Age: 19w 6d 38 % NFT: 5.55 mm NB: 7.46 mm 65 % > 1 MoM LV: 5.5 mm CM: 4.3 mm OOD: 34.7 mm G.Age: 20w 5d 66 % CI: 69.15 % 70 - 86 FL/HC: 17.8 % 16.8 - 19.8 HC/AC: 1.15 1.09 - 1.39 FL/BPD: 68.3 % FL/AC: 20.5 % 20 - 24 Est. FW: 400 gm 0 lb 14 oz 82 % GESTATIONAL AGE: LMP: 23w 0d Date: 09/27/24 JASON: 07/04/25 U/S Today: 21w 1d JASON: 07/17/25 Best: 20w 3d Det. By: Early JASON: 07/22/25 Ultrasound (11/28/24) DETAILED ANATOMY: Head / Neck Cranial Vault: Normal appearance Cavum Septi Pellucidi: Normal appearance Parenchyma: Normal appearance R. Lat. Ventricle: Normal appearance L. Lat. Ventricle: Normal appearance Corpus Callosum: Suboptimal views Midline Falx: Normal appearance R. Choroid Plexus: Normal appearance L. Choroid Plexus.: Normal appearance Cerebellum: Normal appearance CCisterna Magna: Normal appearance Nuchal Fold: Normal appearance Neck: Normal appearance Face Face Profile: Normal appearance Nasal Bone: Normal appearance Coronal Face: Normal appearance Lips: Normal appearance Nose: Normal appearance Lenses: Normal appearance Orbits: Normal appearance Palate: Not vizualized Heart Cardiac Activity: Normal appearance Cardiac Rhythm: Normal appearance 4 Chamber View: Normal appearance R. Outflow Tract: Normal appearance L. Outflow Tract: Normal appearance Interventr. Septum: Normal appearance 3 Vessel View: Normal appearance 3V Trachea View: Normal appearance Cardiac Situs: Normal appearance Aortic Arch: Normal appearance SVC: Normal appearance IVC: Normal appearance Ductal Arch: Normal appearance Crossing G. Ves.: Normal appearance Comment: The cardiac axis is 34.08 degrees Thorax Lungs: Normal appearance Cardiac [place]: Normal appearance Diaphragm: Normal appearance Thoracic Contour: Normal appearance Abdomen Situs: Normal appearance Stomach: Normal appearance Bowel: Normal appearance Liver: Normal appearance Abdominal Wall: Normal appearance Urinary Bladder: Normal appearance R. Kidney: Normal appearance L. Kidney: Normal appearance R. Renal Artery: Normal appearance L. Renal Artery: Normal appearance Umbilical Cord: Normal Appearance UC Vessel Num.: Normal 3VC Cord Insertion: Normal appearance Spine Cervical: Normal appearance Thoracic: Normal appearance Lumbar: Normal appearance Sacral: Normal appearance Shape / Curvature: Normal appearance Over. Soft Tissue: Normal appearance Vertebral Body: Normal appearance Extremities R. Humerus: Normal appearance L. Humerus: Normal appearance R. Forearm: Normal appearance L. Forearm: Normal appearance R. Hand: Normal appearance L. Hand: Normal appearance R. Femur: Normal appearance L. Femur: Normal appearance R. Lower Leg: Normal appearance L. Lower Leg: Normal appearance R. Foot: Normal appearance L. Foot: Normal appearance Other Genitalia: Male CERVIX UTERUS ADNEXA: Cervix Within Normal Limits Abdominally Right Ovary Size(cm) 2.34 x 1.73 x 1.47 Vol(ml): 3.12 Normal in size and appearance. It is found between the uterus and the pelvic sidewall. Left Ovary Size(cm) 2.98 x 2.28 x 2.09 Vol(ml): 7.44 Normal in size and appearance. It is found between the uterus and the pelvic sidewall. COMMENTS: Ms. Carr is being seen for a detailed ultrasound for obesity. - Her medical history is significant for asthma, anxiety and depression. - Her obstetrical history is significant one term vaginal delivery. - Aneuploidy screening was declined in the . - Ultrasound findings: The biometry and anatomical survey are appropriate for the gestational age. There are no markers of aneuploidy. - The patient declined vaginal ultrasound to assess cervical length for risk of . - Plan: No additional ultrasounds have been scheduled. Follow up as clinically indicated. This ultrasound was read remotely by the physician. Thus, the physician did not communicate/discuss the findings or the limitations of this ultrasound with the patient. This ultrasound does not detect all forms of congenital abnormalities. A normal ultrasound does not guarantee normal function. Caridad Cleveland MD Electronically Signed Final Report 03/14/2025 10:48 am us Tiffany Barrera CNM IMG OB US PROCEDURES Final Res ult * Hepatitis C antibody (01/17/2025 3:18 PM EDT) Hepatitis C Antibody Negative Negative LAB CHEMISTRY METHOD 01/17/2025 8:55 PM EDT [facility] Blood Venous blood specimen / Unknown Venipuncture / Unknown 01/17/2025 3:18 PM EDT 01/17/2025 3:18 PM EDT us Tiffany TORO LAB BLOOD ORDERABLES Final Res ult Performing Organization Address [facility]/ZIP Co de Phone Number [facility] [address] [place] [address], [place] [phone] * HIV 1,2 antibody, p24 antigen with reflex to differentiation (01/17/2025 3:18 PM EDT) HIV Combo AB/AG Negative Negative LAB CHEMISTRY METHOD 01/17/2025 7:40 PM EDT [facility] Blood Venous blood specimen / Unknown Venipuncture / Unknown 01/17/2025 3:18 PM EDT 01/17/2025 3:18 PM EDT Narrative [facility] - 01/17/2025 7:40 PM EDT This assay is a 4th generation assay allowing for earlier detection of HIV infection by detecting the presence of the HIV-1 p24 antigen as well as the traditional antibodies to HIV type 1 (including group O) and type 2. Use of a 4th generation assay is the current CDC recommendation for HIV screening. us Tiffany TORO LAB BLOOD ORDERABLES Final Res ult Performing Organization Address City/[facility]/ZIP Co de Phone Number [facility] [address] [place] [address], [place] [phone] * Hepatitis B surface antigen with reflex to confirmation (01/17/2025 3:18 PM EDT) Hepatitis B Surface Ag Negative Negative LAB CHEMISTRY METHOD 01/17/2025 7:48 PM EDT [facility] Blood Venous blood specimen / Unknown Venipuncture / Unknown 01/17/2025 3:18 PM EDT 01/17/2025 3:18 PM EDT Narrative [facility] - 01/17/2025 7:48 PM EDT Over the counter supplements containing high doses of biotin may interfere with this assay. If interference is suspected, patients shoud be retested after refraining from biotin supplements for 72 hours. Tiffany Barrera [facility] LAB BLOOD ORDERABLES Final Res ult Performing Organization Address [facility] Co de Phone Number [facility] [address] [place] [address], [place] [phone] * Treponema pallidum antibody with reflex to RPR and particle agglutination (01/17/2025 3:18 PM EDT) Pathologist [facility] [place] T. Pallidum Antibodies Negative Negative LAB CHEMISTRY METHOD 01/17/2025 8:26 PM EDT [facility] Blood Venous blood specimen / Unknown Venipuncture / Unknown 01/17/2025 3:18 PM EDT 01/17/2025 3:18 PM EDT Tiffany Zazueta Barrera [facility] LAB BLOOD ORDERABLES Final Res ult Performing Organization Address [facility] de Phone Number [facility] [address] [place] [address], [place] [phone] * GTT gestational 1 hour (01/17/2025 3:18 PM EDT) Glucose, 1 HR Gestational 77 <140 mg/dL LAB CHEMISTRY METHOD 01/17/2025 5:06 PM EDT [facility] Blood Venous blood specimen / Unknown Venipuncture / Unknown 01/17/2025 3:18 PM EDT 01/17/2025 3:18 PM EDT Narrative [facility] - 01/17/2025 5:06 PM EDT Gestational Diabetes Challenge Reference Range: 1 hour Glucose <140 mg/dL us Tiffany Barrera CN LAB BLOOD ORDERABLES Final Res ult [facility] [address] [place] [address], [place] [phone] * Drug abuse screen expanded with reflex confirmation, urine (01/17/2025 3:18 PM EDT) Amphetamine Screen, Ur Negative Negative LAB CHEMISTRY METHOD 01/17/2025 5:58 PM EDT [facility] Comment:Certain OTC medicati ons containing ephedrine, phenylephrine, pseudoephedrine and phenylpropanolamine can cause false positive results. Barbiturate Screen, Ur Negative Negative LAB CHEMISTRY METHOD 01/17/2025 5:58 PM EDT [facility] Benzodiazepine Screen, Ur Negative Negative LAB CHEMISTRY METHOD 01/17/2025 5:58 PM EDT [facility] Cocaine Screen, Ur Negative Negative LAB CHEMISTRY METHOD 01/17/2025 5:58 PM EDT [facility] Opiate Screen, Ur Negative Negative LAB CHEMISTRY METHOD 01/17/2025 5:58 PM EDT [facility] Cannabinoid (THC) Screen, Ur Negative Negative LAB CHEMISTRY METHOD 01/17/2025 5:58 PM EDT [facility] Comment:Specimens from patie nts taking pantoprazole sodium (Protonix) have been shown to produce false positive results. Fentanyl, Ur Negative Negative LAB CHEMISTRY METHOD 01/17/2025 5:58 PM EDT [facility] Oxycodone Screen, Ur Negative Negative LAB CHEMISTRY METHOD 01/17/2025 5:58 PM EDT [facility] Urine Urine specimen obtained by clean catch procedure / Unknown Non-blood Collection / Unknown 01/17/2025 3:18 PM EDT 01/17/2025 3:18 PM EDT Narrative [facility] - 01/17/2025 5:58 PM EDT Assay cutoffs: Amphetamines 1000 ng/mL Barbiturates 200 ng/mL Benzodiazepines 200 ng/mL Cocaine 300 ng/mL Fentanyl 1 ng/mL Opiates 300 ng/mL Oxycodone 100 ng/mL THC 50 ng/mL Semi-quantitative assay for screening purposes only. Unconfirmed screening result should not be used for non-medical purposes. *POSITIVE RESULTS ARE AUTOMATICALLY SENT FOR ALTERNATE METHOD CONFIRMATION* us Tiffany Barrera CNM LAB URINE ORDERABLES Final Res ult [facility] [address] [place] [address], [place] [phone] * (ABNORMAL) CBC auto differential (01/17/2025 3:18 PM EDT) WBC 9.6 4.8 - 10.8 K/mcL LAB HEMETOLOGY METHOD 01/17/2025 4:51 PM EDT [facility] RBC 4.20 3.80 - 4.80 M/mcL LAB HEMETOLOGY METHOD 01/17/2025 4:51 PM EDT [facility] Hemoglobin 11.2(L) 11.5 - 16.0 g/dL LAB HEMETOLOGY METHOD 01/17/2025 4:51 PM EDT [facility] Hematocrit 34.0(L) 35.0 - 47.0 % LAB HEMETOLOGY METHOD 01/17/2025 4:51 PM EDT [facility] MCV 81.9 79.0 - 98.0 FL LAB HEMETOLOGY METHOD 01/17/2025 4:51 PM EDT [facility] MCH 27.0 27.0 - 32.0 pcg LAB HEMETOLOGY METHOD 01/17/2025 4:51 PM EDT [facility] MCHC 32.9 32.0 - 37.0 g/dL LAB HEMETOLOGY METHOD 01/17/2025 4:51 PM EDT [facility] RDW 15.5(H) 11.0 - 15.0 % LAB HEMETOLOGY METHOD 01/17/2025 4:51 PM EDT [facility] Platelets 251 130 - 400 K/mcL LAB HEMETOLOGY METHOD 01/17[facility]2025 4:[facility] MPV 11.0 7.0 - 11.0 FL LAB HEMETOLOGY METHOD 01/17/2025 4:51 [facility] NRBC 0.0 <1.0 % LAB HEMETOLOGY METHOD 01/17/2025 4:51 PM EDT [facility] NRBC Absolute 0.00 <0.10 K/mcL LAB HEMETOLOGY METHOD 01/17/2025 4:51 [facility] Neutrophils Relative 72.6 % LAB HEMETOLOGY METHOD 01/17/2025 4:51 PM [facility] Lymphocytes Relative 14.4 % LAB HEMETOLOGY METHOD 01/17/2025 4:51 PM [facility] Monocytes Relative 7.5 % LAB HEMETOLOGY METHOD 01/17/2025 4:51 PM [facility] Eosinophils Relative 4.5 % LAB HEMETOLOGY METHOD 01/17/2025 4:51 PM [facility] Basophils Relative 0.6 % LAB HEMETOLOGY METHOD 01/17/2025 4:51 PM T [facility] Immature Granulocytes Relative 0.4 % LAB HEMETOLOGY METHOD 01/17/2025 4:[facility] Neutrophils Absolute 6.93 1.50 - 7.00 K/mcL LAB HEMETOLOGY METHOD 01/17/2025 4:51 [facility] Lymphocytes Absolute 1.38 1.00 - 5.00 K/mcL LAB HEMETOLOGY METHOD 01/17/2025 4:51 [facility] Monocytes Absolute 0.72 0.20 - 1.00 K/[facility] LAB HEMETOLOGY METHOD 01/17/2025 4:51 PM EDT [facility] Eosinophils Absolute 0.43 0.00 - 0.50 K/[facility] LAB HEMETOLOGY METHOD 01/17/2025 4:51 PM EDT [facility] Basophils Absolute 0.06 0.00 - 0.20 K/[facility] HEMETOLOGY METHOD 01/17/2025 4:51 PM EDT [facility] Immature Granulocytes Absolute 0.04(H) 0.00 - 0.03 K/[facility] HEMETOLOGY METHOD 01/17/2025 4:51 PM EDT [facility] Blood Venous blood specimen / Unknown Venipuncture / Unknown 01/17/2025 3:18 PM EDT 01/17/2025 3:18 PM EDT us Tiffany Barrera [facility] LAB BLOOD ORDERABLES Final Res ult Performing Organization Address City/[facility]/ZIP Co de Phone Number [facility] [address] [place] [address], * Rubella antibody IgG (01/17/2025 3:18 PM EDT) Rubella IgG Quant 40.7 >=10.0 I Unit/mL LAB CHEMISTRY METHOD 01/17/2025 7:11 PM EDT [facility] Rubella IgG Antibody Interp Positive Positive LAB CHEMISTRY METHOD 01/17/2025 7:11 PM EDT [facility] Blood Venous blood specimen / Unknown Venipuncture / Unknown 01/17/2025 3:18 PM EDT 01/17/2025 3:18 PM EDT us Tiffany Barrera CNM LAB BLOOD ORDERABLES Final Res ult [facility] [address] [place] [address], [place] [phone] * Type and screen (01/17/2025 3:18 PM EDT) ABO Group O 01/17/2025 5:39 PM EDT [facility] Rh Type Positive 01/17/2025 5:39 PM EDT [facility] Antibody Screen Negative 01/17/2025 5:39 PM EDT [facility] Blood Venous blood specimen / Unknown Venipuncture / Unknown 01/17/2025 3:18 PM EDT 01/17/2025 3:18 PM EDT Tiffany TORO LAB BLOOD BANK TEST ORDERABLES Final Result [facility] [address] [place] [address], [place] [phone] * (ABNORMAL) Culture urine (01/17/2025 3:18 PM EDT) Culture, Urine 10,000-49,000 CFU/mL Staphylococcus simulans(A) KATIE 01/20/2025 8:08 AM EDT [facility] Comment: The organism value for this result has been updated. These results have been appended to the previously preliminary verified report. Edited result: Previously reported as Gram Positive Cocci on 01/19/2025 at 1307 EDT. Culture, Urine 50,000-100,000 CFU/mL Corynebacterium species(A) KATIE 01/20/2025 8:08 AM EDT [facility] Comment: The organism value for this result has been updated. These results have been appended to the previously preliminary verified report. Urine Urine specimen obtained by clean catch procedure / Unknown Non-blood Collection / Unknown 01/17/2025 3:18 PM EDT 01/17/2025 3:18 PM EDT Narrative Organism Antibiotic Method Susceptibility Staphylococcus simulans Benzylpenicillin KATIE >=0.5 ug/ml: Resistant Staphylococcus simulans Oxacillin KATIE <=0.25 ug/ml: Susceptible Staphylococcus simulans Gentamicin KATIE <=0.5 ug/ml: Susceptible Staphylococcus simulans Ciprofloxacin KATIE <=0.5 ug/ml: Susceptible Staphylococcus simulans Levofloxacin KATIE <=0.12 ug/ml: Susceptible Staphylococcus simulans Vancomycin KATIE <=0.5 ug/ml: Susceptible Staphylococcus simulans Tetracycline KATIE <=1 ug/ml: Susceptible Staphylococcus simulans Nitrofurantoin KATIE <=16 ug/ml: Susceptible Staphylococcus simulans Rifampin KATIE <=0.5 ug/ml: Susceptible us Tiffany Barrera CNM LAB MICROBIOLOGY - GENERAL ORD ERABLES Final Result Performing Organization Address [facility] Co de Phone Number [facility] [address] [place] [address], [place] [phone] * (ABNORMAL) Varicella zoster antibody IgG (01/17/2025 3:18 PM EDT) [facility] Varicella IgG Negative( A) Positive LAB CHEMISTRY METHOD 01/18/2025 8:48 AM EDT [facility] Varicella Zoster IgG 0.23(L) >=1.00 S/CO LAB CHEMISTRY METHOD 01/18/2025 8:48 AM EDT [facility] Blood Venous blood specimen / Unknown Venipuncture / Unknown 01/17/2025 3:18 PM EDT 01/17/2025 3:18 PM EDT Narrative [facility] - 01/18/2025 8:48 AM EDT Interpretation >= 1.00 S/CO is considered to be consistent with Immunity us Tiffany TORO LAB BLOOD ORDERABLES Final Res ult Performing Organization Address [facility] de Phone Number [facility] [address] [place] [address], [place] [phone] * Hemoglobin A1c (01/17/2025 3:18 PM EDT) Pathologist [facility] [place] Hemoglobin A1C 5.7 <6.5 % LAB CHEMISTRY METHOD 01/17/2025 9:38 PM EDT [facility] Mean Bld Glu Estim. 117 mg/dL LAB CHEMISTRY METHOD 01/17/2025 9:38 PM EDT [facility] Blood Venous blood specimen / Unknown Venipuncture / Unknown 01/17/2025 3:18 PM EDT 01/17/2025 3:18 PM EDT us Tiffany Barrera CNM LAB BLOOD ORDERABLES Final Res ult [facility] [address] [place] [address], [place] [phone] * Trichomonas vaginalis antigen (01/15/2025 3:25 PM EDT) Pathologist [facility] [place] Trichomonas vaginalis Negative Negative 01/15/2025 7:56 PM EDT [facility] Swab Vaginal structure / Unknown Non-blood Collection / Unknown 01/15/2025 3:25 PM EDT 01/15/2025 3:25 PM EDT us Tiffany Barrera CNM LAB MICROBIOLOGY - GENERAL ORD ERABLES Final Result [facility] [address] [place] [address], [place] [phone] * (ABNORMAL) Wet prep, genital (01/15/2025 3:25 PM EDT) Pathologist [facility] [place] Clue Cells, Wet Prep Negative Negative 01/15/2025 7:56 PM EDT [facility] Yeast, Wet Prep Positive(A) Negative 01/15/2025 7:56 PM EDT [facility] Trichomonas, Wet Prep Indeterminate Negative 01/15/2025 7:56 PM EDT [facility] Comment:Refer to Trichomonas antigen. Swab Vaginal structure / Unknown Non-blood Collection / Unknown 01/15/2025 3:25 PM EDT 01/15/2025 3:25 PM EDT us Tiffany Barrera CNM LAB MICROBIOLOGY - GENERAL ORD ERABLES Final Result Performing Organization Address [facility]/ZIP Co de Phone Number [facility] [address] [place] [address], [place] [phone] * Chlamydia trachomatis and neisseria gonorrhoeae by tma, thinprep (01/15/2025 2:27 PM EDT) N. gonorrhoeae, RNA Probe Negative Negative LAB MICROBIOLOGY METHOD 01/18/2025 1:04 PM EDT [facility] Chlamydia, RNA Probe Negative Negative LAB MICROBIOLOGY METHOD 01/18/2025 1:04 PM EDT [facility] Brushing/Spatula Cervix uteri structure / Unknown 01/15/2025 2:27 PM EDT 01/16/2025 6:47 AM EDT us Tiffany TORO LAB CYTOLOGY ORDERABLES Final Result Performing Organization Address [facility] Co de Phone Number [facility] [address] [place] [address], [place] [phone] * HPV with reflex genotype (01/15/2025 2:27 PM EDT) HPV Negative Negative LAB MICROBIOLOGY METHOD 01/16/2025 1:16 PM EDT [facility] Brushing/Spatula Cervix uteri structure / Unknown 01/15/2025 2:27 PM EDT 01/16/2025 6:47 AM EDT us Tiffany Barrera CNM LAB MOLECULAR DIAGNOSTICS ORDE RABLES Final Result Performing Organization Address City/[facility]/ZIP Co de Phone Number [facility] [address] [place] [address], [place] [phone] * Trichomonas vaginalis molecular study (01/15/2025 2:27 PM EDT) Trichomonas vaginalis Negative Negative LAB MICROBIOLOGY METHOD 01/18/2025 1:19 PM EDT [facility] Brushing/Spatula Cervix uteri structure / Unknown 01/15/2025 2:27 PM EDT 01/16/2025 6:47 AM EDT Tiffany TORO LAB BLOOD ORDERABLES Final Res ult Performing Organization Address [facility]/ZIP Co de Phone Number [facility] [address] [place] [address], [place] [phone] * Pap smear (01/15/2025 2:27 PM EDT) Interpretation Negative for intraepithelial lesion or malignancy 01/23/2025 4:00 PM EDT [facility] General Categorization Negative 01/23/2025 4:00 PM EDT [facility] Specimen Adequacy Satisfactory for evaluation, endocervical/stephenson sformation zone component absent 01/23/2025 4:00 PM EDT [facility] Pap Methodology Liquid Based Pap Test 01/23/2025 4:00 PM EDT [facility] Disclaimer The Pap test is a screening test which carries an inherent false negative rate. These test results should be correlated with the patient's clinical findings and history. This Pap test was processed using an automated screening system. Technical cytopathology services provided by [facility], at [address] [place] [address] (CLIA # [id number]/Fernando Gibson MD, Quality Assurance Qa Lab Analyst.) 01/23/2025 4:00 PM EDT [facility] Console Pap Interpretation Reported 01/23/2025 4:00 PM EDT [facility]) [facility] Brushing/Spatula Cervix uteri structure / Unknown 01/15/2025 2:27 PM EDT 01/15/2025 2:27 PM EDT Tiffany Barrera CNM LAB CYTOLOGY ORDERABLES Final Result [facility] [address] [place] [address], [place] [phone] from Last 3 Months Insurance [employer] Care Teams Gifted Teacher Relationship Specialty Start Date End Date Deniz López PA [address] [place] [address] [phone] PCP - General Physician Machine Brush Maker 01/30/25
--- OUTSIDE RECORDS SUMMARY | 2025-03-24 05:50 | XMS_ITS | Encounter Summary ---
[facility] Organization [facility] Address [address] [place] [address] Care Team Providers Care Pond Worker Name Role Phone Deniz López Primary Care Provider [phone] Reason for Visit * Reason Onset Date Comments Forms/questionnaires 03/20/2025 Encounter Details Date Type Department Care Team ([facility] Contact Info) Description 03/20/2025 Telephone Obstetrics and Gynecology - [place] [address], [place] [phone] Tiffany Barrera, [facility] [address], [place] Social History Tobacco Use Types Packs/Day Years [...] for your loved ones. For example, child support officer or elderly care for an older adult? [...] on file documented as of this encounter Progress Notes * Jo Ann Walker - 03/20/2025 3:25 PM EDT FORMS TO BE COMPLETED IN THE PRACTICE: Type of form: [facility] Release of information form ( all sections) has been completed and Signed. Yes For what medical problem does the patient need this form completed? Maternity leave Is patients name on the form? Yes Is the patients portion (demographics) of the form completed? Yes Did the patient sign the form? Yes Which provider is form to be completed by? Tiffany TORO Patient requesting the form be: Will car pick up driver If form is not to be picked up by patient has patient been informed that RELEASE OF INFO form must be signed by them for alternate person to pick up worker form? No Patient has been informed that completion will be in 7-10 business days: Yes documented in this encounter Plan of Treatment Upcoming Encounters Date Type Department Care Team (Late st Contact Info) Description 04/19/2025 3:30 PM EDT Routine Obstetrics and Gynecology - [address] [phone] Tiffany Barrera, [address] 05/17/2025 3:00 PM EST Routine Obstetrics and Gynecology - [address] [phone] Tiffany Barrera, [address] 06/07/2025 4:00 PM EST Routine Obstetrics and Gynecology - [address] [phone] Anne Cheney [address] documented as of this encounter Visit Diagnoses Not on filedocumented in this encounter Additional Health Concerns Assessment Noted Time PHQ-9 Depression Total Score: 0 03/20/20 2:31 PM EDT documented as of this encounter Care Teams Pond Worker Relationship Specialty Start Date End Date Deniz López PA [address] [place] [phone] PCP - General Physician Manager Integration 01/30/25 documented as of this encounter
--- OUTSIDE RECORDS SUMMARY | 2025-03-24 05:50 | XMS_ITS | Patient Health Record ---
Author Organization [facility] Address [address] [facility] [address] [place] [address] Support Name Relationship Address Phone Unavailable Emergency Contact 07/05 [place], [place] [id number] FITZ FIGUEROA Guarantor Unknown [phone] Care Team Providers Care Middleware Consultant Name Role Phone ZEENAT HERNANDEZ Primary Care Provider LAURA Gardner Unavailable [phone] Allergies No Known Allergies Reason For Referral No Information Medications Medication SIG (Take, Route, Frequency, Duration) Notes Start Date End Date Status Montelukast Sodium 10 MG 1 tablet Orally Once a day; Duration: 30 day(s) Not-Taking Albuterol as needed Active Cetirizine HCl 10 MG TAKE 1 TABLET BY MO UTH EVERY DAY NEEDED Oral; Duration: 30 Not-Taking LORazepam 0.5 MG TAKE 1 TABLET BY DANYELL TH DAILY 7 DAYS NEEDED FOR ANXIETY Oral; Duration: 7 Not-Taking metroNIDAZOLE 0.75 % 1 applicatorful at bedtime Vaginal Once a day; Duration: 5 day(s) 03/04/2020 Not-Taking Sertraline HCl 25 MG 1 tablet Orally Onc e a day; Duration: 30 day(s) 06/19/2021 Not-Taking Prometrium 200 MG 2 capsules at bedtim e Orally Once a day; Duration: 12 day(s) 05/26/2021 Not-Taking ZyrTEC Allergy 10 MG 1 tablet Orally Onc e a day; Duration: 30 day(s) Active Flovent Diskus 50 MCG/BLIST 1 puff Inhalation Twice a day Not-Taking Sprintec 28 0.25-35 MG-MCG 1 tablet Orally Once a day; Duration: 84 days 03/02/2019 Not-Ike gamez Social History Tobacco Use: Social History Observation [...] Status W/U Status Risk Notes Problem Amenorrhea (32946813) Amenorrhea, unspecified (N91.2) Active confirmed Problem Irregular Menstruation (78347597) Other specified irregular menstruation (N92.5) Active confirmed Problem Irregular menstruation (85466547) Irregular menstruation, unspecified (N92.6) Active confirmed Plan [...] End Date [employer] [place] [address] [place] [address] [id number] FITZ POE Self - patient is the insured Medical (General) History Medical History History ICD Code Generalized anxiety disorder F41.1 Irregular menstruation, unspecified N92. 6 Hyperprolactinemia E22.1 Other asthma J45.998 Pure hypercholesterolemia, unspecified E 78.00 COVID-19 U07.1 Surgical History Surgery Date(Month/Year) Hospitalization History Reason Date(Month/Year) 'stomach flu' at age 7 1998
[2025-03-24 06:10] VITALS: TEMP 37.3
[2025-03-24 06:25] VITALS: BP 109/63; PULSE 120; RESP 18; TEMP 37.6; O2SAT 97
--- NOTE | 2025-03-24 06:35 | PC.NURSE ---
no pain, alert, oriented, appears calm, ambulates steadily without assist, states in agreement with ready for d/c, no further questions for provider
== END 2025-03-24 06:38 | disposition home or self-care (01) ==
PROVIDERS: Emergency Provider Emergency Medicine; PCP Physician Assistant
DX: R05.9 Cough, unspecified (principal); R50.9 Fever, unspecified; R39.198 Other difficulties with micturition; Z11.52 Encounter for screening for COVID-19; Z79.899 Other long term (current) drug therapy
CPT/HCPCS: 36415; 71045; 80053; 81001; 85025; 87502; 87635; 99283

== ENCOUNTER → 2025-03-24 05:15 | Outpatient (BNV) | payer SELFPAY | PROVIDERS: Emergency Provider Emergency Medicine; PCP Physician Assistant; Visit Provider Radiology Diagnostic Radiology | DX: R05.9 Cough, unspecified (principal); Z3A.21 21 weeks gestation of pregnancy | CPT/HCPCS: 71045 ==

== ENCOUNTER 2025-03-28 16:14 | Emergency (ER) | payer SELFPAY ==
[2025-03-28] VITALS (8 sets, daily range): BP systolic 107–115; BP diastolic 54–65; PULSE 101–116; RESP 16–20; TEMP 36.6–37.6; O2SAT 96–100; BMI 32.8
--- NOTE | 2025-03-28 | ECG_ITS ---
Test Reason : dizziness Blood Pressure : */* mmHG Vent. Rate : 105 BPM Atrial Rate : 105 BPM P-R Int : 118 ms QRS Dur : 84 ms QT Int : 334 ms P-R-T Axes : 26 19 18 degrees QTcB Int : 441 ms Sinus tachycardia Otherwise normal ECG When compared with ECG of 23-Dec-2017 22:37, No significant change was found Referred By: Generic ED Physician Electronically Signed By: Anival Telles
--- NOTE | ~2025-03-28 | XR_ITS ---
CLINICAL HISTORY: cough EXAM: One view chest x-ray COMPARISON: CR - XR CHEST 1V - 03/24/25 06:19 EDT FINDINGS: Normal cardiac, mediastinal, and hilar contours. Normal heart size. No pleural effusion or pneumothorax. Lungs are clear. No acute bone finding. IMPRESSION: 1. No acute cardiopulmonary process demonstrated. This document has been electronically signed by: James Thurman MD on 03/28/2025 19:10:38
--- NOTE | 2025-03-28 16:38 | ED_ITS ---
HPI - General Adult General Chief complaint: Upper Respiratory Symptoms Stated complaint: fatigue dizziness, SOB, dehydration, cough Time Seen by Provider: 03/28/25 18:00 Source: patient Mode of arrival: ambulatory Limitations: no limitations History of Present Illness ED Provider: Dr. Jain HPI narrative: This is a 34-year-old female 23 weeks presented hospital today for evaluation of fatigue cough dizziness body aches. The patient was seen 4 days ago and was diagnosed with a URI and discharged home. However patient returned due to worsening of her symptoms. Patient stated that she has been having some dry coughing. She did have cold- like symptoms. However he has been worsening she has been having more chills and body aches. She denies any abdominal pain. Denies any nausea or vomiting. No history of complicated delivery in the past or eclampsia or preeclampsia. Related Data Previous Rx's ?Medication ?Instructions ?Recorded cetirizine 10 mg tablet 10 mg PO DAILY 90 days #90 t abs 05/31/23 trazodone 50 mg tablet 50 mg PO DAILY 4 days #4 tab s 09/26/23 prednisone 20 mg tablet 60 mg (3 x 20 mg) PO DAILY # 12 tabs 10/31/24 sertraline 50 mg tablet 50 mg PO DAILY 90 days #90 t abs 11/20/24 albuterol sulfate 90 mcg/actuation 2 puff inhalation Q 4-6H PRN 02/07/25 aerosol inhaler shortness of breath or wheez ing 30 days #8.5 grams prednisone 10 mg tablet 10 mg PO DIRECTED 6 days #12 03/21/25 tabs Allergies Allergy/AdvReac Type Severity Reaction Status Date / Time Seasonal Allergies Allergy Mild sneezing, Verified 03/28/25 16:38 runny nose cat saliva Allergy Mild hives, Uncoded 03/24/25 04:26 itchy eyes Review of Systems 2 Review of Systems: Pertinent review of systems as mentioned in HPI. All other system otherwise negative. PMFSH Past Medical History PMFSH Narrative: Medical history as mentioned in HPI Medical History Panic attacks Lumbar spondylosis Family History Family History Mother High cholesterol Diabetes Fibromyalgia Social History Social History Housing: House Alcohol intake: never Patient Tobacco Use Status: Never used Tobacco Smoked in Last 30 Days: No e-Cigarette/Vaping Use: Never Used Second Hand Smoke Exposure: No Use of substances other than those prescribed or required for medical reasons: No Advance Directives: No Advance Directives Information Provided: Yes Do you have a plan to hurt others: No Plan Patient : Yes service: No Current occupational status: employed Current occupation: [employer] Cognitive needs: No Hearing needs: No Vision needs: No Physical Exam ED Exam Exam: General: Pleasant, no distress, interacting appropriately Head: Normacephalic, atraumatic ENT: oral mucosa moist, neck supple, no tracheal deviation Cardiovascular: Tachycardic rate, regular rhythm, no murmurs, rubbing, gallops Respiratory: CTAB, no wheeze, rales, rhonchi Gastrointestinal: Soft, non distended, no right upper quadrant tenderness, gravid abdomen Extremities: No limb pain or swelling, no calf tenderness Neurological: Awake and alert, no facial droop noted Skin: Warm and dry Psychiatric: Appropriate mood and thoughts Vital Signs: Vital Signs - 24 hr 03/28/25 16:36 03/28/25 18:06 03/28/25 18:08 Temperature 97.8 F 99.6 F Pulse Rate 105 H 116 H Respiratory Rate 18 20 Blood Pressure 115/56 L 108/54 L Pulse Oximetry 97 98 98 Oxygen Delivery Method Room Air Room Air Room Air 03/28/25 18:58 03/28/25 20:05 03/28/25 20:17 Temperature 99.2 F 98.8 F Pulse Rate 108 H 101 H 101 H Respiratory Rate 16 20 20 Blood Pressure 107/65 112/62 109/58 L Pulse Oximetry 97 96 100 Oxygen Delivery Method Room Air Room Air Room Air BMI result Body Mass Index 32.8 Course Course Course Narrative: This is an RME: Additional HPI, ROS, PE not included below will be deferred to primary provider. RME assessment and note performed by: Arline Jacobo PA-C This is a 89-mclm-eze-female, 23 +3 day , who presents to the ER with complaints of fatigue, dizziness, SOB. No vaginal bleeding or discharge. Reports that dark urine. Was seen here several days ago. Was told by Ob to return back if her symptoms with her not improving. Plan: Labs, EKG, viral swabs Medications Administered Discontinued Medications Generic Name Dose Route Start Last Admin Trade Name Vero PRN Reason Stop Dose Admin Ceftriaxone Sodium 2 gm 03/28/25 18:04 03/28/25 18:51 Ceftriaxone Sodium 2 Gm Vial IVPUSH 03/28/25 18:05 2 gm ONCE ONE Administration Magnesium Sulfate 2 gm in 50 mls @ 25 mls/hr 03/28/25 18:15 03/28/25 20:53 Magnesium Sulfate/H2o IV 03/28/25 20:14 Infused ONCE ONE Infusion Lactated Ringer's 1,000 mls @ 999 mls/hr 03/28/25 18:30 03/28/25 19:50 Lr IV 03/28/25 19:30 Infused .Q1H1M LATRICE Infusion Medical Decision Making Medical Decision Making [facility] Narrative: This is a 34-year-old female 23 weeks presented hospital today for evaluation of fatigue shortness of breath weakness increased dizziness and body aches. Recently diagnosed with a upper respiratory infection. Notified by my PA that patient has some bandemia on lab work. 15%. Patient has leukopenia at 4.6. She also has signs of elevated transaminitis elevated bilirubin, patient's has no Townsend's sign no abdominal pain on exam. Patient's platelet is noted to be low at 112 as well. Patient is not hypertensive. I did perform a bedside ultrasound. heart rate is 154. movement appreciated on ultrasound. This time we will plan to obtain lactic acid and blood cultures sepsis alert has been called. We will also plan to cover empirically with IV ceftriaxone. We will plan to make a call out to [facility] to discuss the case with them for potential transfer. Interestingly enough patient is not hypertensive. However she does show signs of elevated liver enzyme protein, thrombocytopenia. Do not think patient is preeclamptic. I suspect this is secondary to sepsis. May be from a urinary source she does have leuk esterase on UA. IV ceftriaxone was given to the patient. Discussed the case with Dr. Guardado who is under the service of Dr. Rodney . They will plan to accept the patient to their service. Patient will be transferred to [facility]. Blood pressure remained stable at this time. Differential Diagnosis Differential Diagnoses: The differential diagnosis associated with the presentation includes Preeclampsia, HELLP syndrome, mono, URI, pneumonia, sepsis Lab Data MDM Lab Attestation statement: I reviewed the patient's lab results. 03/28/25 16:51 03/28/25 16:51 Labs: Lab Results 03/28/25 03/28/25 03/28/25 Range/Units 16:51 16:57 18:20 WBC 4.6 L (4.8-10.8) X10*3/uL RBC 3.70 L (4.20-5.50) X10*6/uL Hgb 9.9 L (12.0-16.0) g/dl Hct 29.3 L (37.0-47.0) % MCV 79.2 L (80.0-98.0) fL MCH 26.8 L (27.0-33.0) pg MCHC 33.8 (31.0-35.0) g/dl RDW 15.4 (11.0-16.0) % Plt Count 112 L D (160-400) X10*3/uL MPV 10.8 (9.4-12.3) fL Immature Gran % (Auto) Cancelled Neut % (Auto) Cancelled Lymph % (Auto) Cancelled Centre % (Auto) Cancelled Eos % (Auto) Cancelled Baso % (Auto) Cancelled Lymph # (Auto) Cancelled Centre # (Auto) Cancelled Eos # (Auto) Cancelled Baso # (Auto) Cancelled Abs Immat Gran (auto) Cancelled Absolute Neuts (auto) Cancelled Absolute Nucleated RBC 0.000 (0.0-0.012) X10*3/uL Nucleated RBC % (auto) 0.0 (0.0-0.2) /100WBC Neutrophils % (Manual) 61 (45-73) % Band Neutrophils % 15 H (3-5) % Lymphocytes % (Manual) 14 L (20-40) % Atypical Lymphs % (Man) 3 (0-6) % Monocytes % (Manual) 5 (2-11) % Metamyelocytes % 2 % Abs Neuts (Manual) 3.5 (2.0-8.3) X10*3/uL Lymphocytes # (Manual) 0.6 L (1.2-4.9) X10*3/uL Atyp Lymphs # (Manual) 0.1 x10*3/uL Monocytes # (Manual) 0.2 (0.1-1.2) X10*3/uL Metamyelocytes # 0.1 X10*3/uL Toxic Vacuolation PRESENT Platelet Estimate SLIGHTLY DECREASED (NORMAL) Plt Morphology Comment NORMAL RBC Morphology NOTED Polychromasia 1+ (0-2) /OIF Sodium 137 (135-145) mmol/L Potassium 3.3 (3.3-5.1) mmol/L Chloride 105 (96-108) mmol/L Carbon Dioxide 24 (22-29) mmol/L Anion Gap 11 L (12-20) BUN 7 L (9-16) mg/dL Creatinine 0.49 L (0.5-1.4) mg/dL Estim Creat Clear Calc 150.5 Estimated GFR > 60 Random Glucose 87 (60-115) mg/dL Lactic Acid (0.5-2.0) mmol/L Calcium 8.1 L (8.4-10.2) mg/dL Magnesium 1.9 (1.6-2.6) mg/dL Total Bilirubin 3.0 H (0.0-1.0) mg/dL Direct Bilirubin 2.2 H (0.0-0.5) mg/dL AST 417 H (5-31) U/L ALT 236 H (0-31) U/L Alkaline Phosphatase 256 H (39-117) U/L Total Creatine Kinase 23 L (26-140) U/L Troponin I High Sens < 2.7 (<3.5-17.0) ng/L NT-Pro-B Natriuret Pep 133.6 (<300) pg/mL Total Protein 6.0 L (6.5-8.0) g/dL Albumin 2.9 L (3.5-5.0) g/dL Urine Color Dark Yellow Urine Appearance Clear Urine pH 6.5 (5.0-9.0) Ur Specific [place] 1.015 (1.005-1.025) Urine Protein 30 (1+) H (Neg-Trace) mg/dL Urine Glucose (UA) Negative (Negative) mg/dL Urine Ketones 80 (Negative) mg/dL Urine Blood Negative (Negative) Urine Nitrite Negative (Negative) Ur Leukocyte Esterase Small (1+) H (Negative) Urine RBC 0-2 (0-2) /HPF Urine WBC 0-5 (0-5) /HPF Ur Squamous Epith Cells 6-10 (0-2) /HPF Urine Bacteria None Seen (None Seen) Hyaline Casts 0-2 (0-2) /LPF COVID-19 (SETH) (Negative) COVID-19 Clin Com Influenza Type A (TONY) (Negative) Influenza Type B (TONY) (Negative) Influenza A & B Note 03/28/25 03/28/25 Range/Units 18:42 18:49 WBC (4.8-10.8) X10*3/uL RBC (4.20-5.50) X10*6/uL Hgb (12.0-16.0) g/dl Hct (37.0-47.0) % MCV (80.0-98.0) fL MCH (27.0-33.0) pg MCHC (31.0-35.0) g/dl RDW (11.0-16.0) % Plt Count (160-400) X10*3/uL MPV (9.4-12.3) fL Immature Gran % (Auto) Neut % (Auto) Lymph % (Auto) Centre % (Auto) Eos % (Auto) Baso % (Auto) Lymph # (Auto) Centre # (Auto) Eos # (Auto) Baso # (Auto) Abs Immat Gran (auto) Absolute Neuts (auto) Absolute Nucleated RBC (0.0-0.012) X10*3/uL Nucleated RBC % (auto) (0.0-0.2) /100WBC Neutrophils % (Manual) (45-73) % Band Neutrophils % (3-5) % Lymphocytes % (Manual) (20-40) % Atypical Lymphs % (Man) (0-6) % Monocytes % (Manual) (2-11) % Metamyelocytes % % Abs Neuts (Manual) (2.0-8.3) X10*3/uL Lymphocytes # (Manual) (1.2-4.9) X10*3/uL Atyp Lymphs # (Manual) x10*3/uL Monocytes # (Manual) (0.1-1.2) X10*3/uL Metamyelocytes # X10*3/uL Toxic Vacuolation Platelet Estimate (NORMAL) Plt Morphology Comment RBC Morphology Polychromasia /OIF Sodium (135-145) mmol/L Potassium (3.3-5.1) mmol/L Chloride (96-108) mmol/L Carbon Dioxide (22-29) mmol/L Anion Gap (12-20) BUN (9-16) mg/dL Creatinine (0.5-1.4) mg/dL Estim Creat Clear Calc Estimated GFR Random Glucose (60-115) mg/dL Lactic Acid 1.1 (0.5-2.0) mmol/L Calcium (8.4-10.2) mg/dL Magnesium (1.6-2.6) mg/dL Total Bilirubin (0.0-1.0) mg/dL Direct Bilirubin (0.0-0.5) mg/dL AST (5-31) U/L ALT (0-31) U/L Alkaline Phosphatase (39-117) U/L Total Creatine Kinase (26-140) U/L Troponin I High Sens (<3.5-17.0) ng/L NT-Pro-B Natriuret Pep (<300) pg/mL Total Protein (6.5-8.0) g/dL Albumin (3.5-5.0) g/dL Urine Color Urine Appearance Urine pH (5.0-9.0) Ur Specific [place] (1.005-1.025) Urine Protein (Neg-Trace) mg/dL Urine Glucose (UA) (Negative) mg/dL Urine Ketones (Negative) mg/dL Urine Blood (Negative) Urine Nitrite (Negative) Ur Leukocyte Esterase (Negative) Urine RBC (0-2) /HPF Urine WBC (0-5) /HPF Ur Squamous Epith Cells (0-2) /HPF Urine Bacteria (None Seen) Hyaline Casts (0-2) /LPF COVID-19 (SETH) Negative (Negative) COVID-19 Clin Com See Note Influenza Type A (TONY) Negative (Negative) Influenza Type B (TONY) Negative (Negative) Influenza A & B Note Independent Interpretation I performed an independent interpretation of an: EKG and Plain X-Ray Radiology Impression Discussion of test interpretation with radiology: I have reviewed the radiologist's reading. Critical Care Time Critical Care Time Critical Care Time: Yes Total Critical Care Time: 40 Attestation: Time is exclusive of separately billable procedures. Time includes: direct patient care, patient reassessment, coordination of patient care, interpretation of data (laboratory data, pulse oximetry, arterial blood gases and chest xrays), review of patient's medical records, medical consultation and documentation of patient care. Procedures excluded from critical care time: central intravenous line placement and electrocardiography. Discharge Plan Discharge Clinical Impression: Transaminitis Sepsis Qualifiers: Sepsis type: sepsis due to unspecified organism Sepsis acute organ dysfunction status: with acute organ dysfunction Severe sepsis acute organ dysfunction type: unspecified Severe sepsis shock status: without septic shock Qualified Code(s): A41.9 - Sepsis, unspecified organism Currently Qualifiers: Weeks of gestation: 23 weeks Qualified Code(s): Z3A.23 - 23 weeks gestation of Patient Disposition: [facility] Transfer Details: [facility] Prescriptions: No Action trazodone 50 mg tablet 50 mg PO DAILY 4 Days Qty: 4 0RF sertraline 50 mg tablet 50 mg PO DAILY 90 Days Qty: 90 1RF albuterol sulfate 90 mcg/actuation HFA aerosol inhaler 2 puff inhalation Q4-6H PRN (Reason: shortness of breath or wheezing) 30 Days Qty: 8.5 3RF prednisone 10 mg tablet 10 mg PO DIRECTED 6 Days Qty: 12 0RF Rx Instructions: Take 3 tablets x2 days, 2 tablets x2 days, 1 tablet x2 days prednisone 20 mg tablet 60 mg PO DAILY Qty: 12 0RF cetirizine 10 mg tablet 10 mg PO DAILY 90 Days Qty: 90 2RF Print Language: Montserratian
[2025-03-28 16:57] LABS: Hemoglobin 9.9 g/dl (12.0-16.0); Mean Corpuscular Hemoglobin 26.8 pg (27.0-33.0); NRBC Abs Auto 0.000 X10*3/uL (0.0-0.012); NRBC Pct Auto 0.0 /100WBC (0.0-0.2); PLT CLUMP 1; Red Blood Count 3.70 X10*6/uL (4.20-5.50)
[2025-03-28 16:58] LABS: Hematocrit 29.3 % (37.0-47.0); Mean Corpuscular HGB Conc 33.8 g/dl (31.0-35.0); Mean Corpuscular Volume 79.2 fL (80.0-98.0)
[2025-03-28 17:06] LABS: White Blood Count 4.6 X10*3/uL (4.8-10.8)
[2025-03-28 17:20] LABS: Alanine Aminotransferase 236 U/L (0-31); Albumin Level 2.9 g/dL (3.5-5.0); Alkaline Phosphatase 256 U/L (39-117); Anion Gap 11 (12-20); Aspartate Amino Transferase 417 U/L (5-31); Blood Urea Nitrogen 7 mg/dL (9-16); Calcium 8.1 mg/dL (8.4-10.2); Carbon Dioxide 24 mmol/L (22-29); Chloride 105 mmol/L (96-108); Creatinine Clr Calc Pharmacy 150.5; Estimated Glomerular Filt Rate > 60; Magnesium 1.9 mg/dL (1.6-2.6); Potassium 3.3 mmol/L (3.3-5.1); Sodium 137 mmol/L (135-145); Total Protein 6.0 g/dL (6.5-8.0)
[2025-03-28 17:21] LABS: Appearance Urine Clear; Glucose Urine UA Negative (Negative); PH 6.5 (5.0-9.0); Specific Gravity - Urine 1.015 (1.005-1.025); UMIC TRIGGER UACC YES
[2025-03-28 17:32] LABS: UACC Culture Trigger YES
[2025-03-28 17:49] LABS: Neutrophils Percent Manual 61 % (45-73)
[2025-03-28 17:51] LABS: Atypical Lymph Absolute Manual 0.1 x10*3/uL; Atypical Lymphs Percent Manual 3 % (0-6); Band Neutrophils Percent 15 % (3-5); Lymphocytes Absolute Manual 0.6 X10*3/uL (1.2-4.9); Lymphocytes Percent Manual 14 % (20-40); Metamyelocytes Absolute 0.1 X10*3/uL; Metamyelocytes Percent 2 %; Monocytes Absolute Manual 0.2 X10*3/uL (0.1-1.2); Monocytes Percent Manual 5 % (2-11); Neutrophils Absolute Manual 3.5 X10*3/uL (2.0-8.3)
[2025-03-28 17:56] LABS: RBC Morphology NOTED
[2025-03-28 17:57] LABS: Polychromasia 1+ (0-2) /OIF; Toxic Vacuolation PRESENT
[2025-03-28 17:58] LABS: Platelet Count 112 X10*3/uL (160-400)
--- NOTE | 2025-03-28 18:13 | ECG_ITS ---
Test Reason : TACHYCARDIA Blood Pressure : */* mmHG Vent. Rate : 110 BPM Atrial Rate : 110 BPM P-R Int : 120 ms QRS Dur : 80 ms QT Int : 328 ms P-R-T Axes : 32 32 5 degrees QTcB Int : 443 ms Sinus tachycardia Otherwise normal ECG When compared with ECG of 28-Mar-2025 16:27, No significant change was found Referred By: Florecita Jain Electronically Signed By: Anival Telles
[2025-03-28] MEDS: Magnesium Sulfate/H2O 2 GM/50 ML PIGGYBACK IV (18:32)
[2025-03-28] MEDS: Lactated Ringers 1,000 ML 999 ML IV (18:37)
[2025-03-28 18:52] LABS: NT Pro B Type Natriuretic Pept 133.6 pg/mL (<300); Troponin-I High Sensitivity < 2.7 ng/L (<3.5-17.0)
--- NOTE | 2025-03-28 18:59 | PC.NURSE ---
Second IV line established, medicated with ABX per MAR. Pt denies pain/discomfort at this time, VSS. Pt aware of plan to transfer to [facility].
[2025-03-28 19:17] LABS: COVID-19 Test Negative (Negative); IDNOW Serial# 152EDE1D
[2025-03-28 19:18] LABS: IDNOW Serial# 55D5AD1C; Influenza B2 Negative (Negative)
--- NOTE | 2025-03-28 19:51 | PC.NURSE ---
late entry abx admin delayed d/t patient needing 2nd set of cultures / simultaneous sepsis alerts in same section.
--- NOTE | 2025-03-28 19:52 | MHC.EDTECH ---
This cleaner wall ambulated patient to the bathroom. Patient has a steady gait and denied any dizziness.
--- OUTSIDE RECORDS SUMMARY | 2025-03-28 20:05 | XMS_ITS | Patient Health Record ---
[facility] Address [address] [place] [address] Support Name Relationship Address Phone Unavailable Emergency Contact 07/05 [place], [place] [id number] FITZ FIGUEROA Guarantor Unknown [phone] Care Team Providers Care Collar Separator Name Role Phone ZEENAT HERNANDEZ Primary Care Provider LAURA Gardner Unavailable [phone] Allergies No Known Allergies Reason For Referral [...] Status W/U Status Risk Notes Problem Amenorrhea (32538791) Amenorrhea, unspecified (N91.2) Active confirmed Problem Irregular Menstruation (46757122) Other specified irregular menstruation (N92.5) Active confirmed Problem Irregular menstruation (46388885) Irregular menstruation, unspecified (N92.6) Active confirmed Plan [...] End Date [employer] [address] [place] [address] [id number] FITZ POE Self - patient is the insured Medical (General) History Medical History History ICD Code Generalized anxiety disorder F41.1 Irregular menstruation, unspecified N92. 6 Hyperprolactinemia E22.1 Other asthma J45.998 Pure hypercholesterolemia, unspecified E 78.00 COVID-19 U07.1 Surgical History Surgery Date(Month/Year) Hospitalization History Reason Date(Month/Year) 'stomach flu' at age 7 1998
--- NOTE | 2025-03-28 21:11 | PC.NURSE ---
RN to RN report given to Donna at [facility]. Patient transfer pending EMS arrival.
== END 2025-03-28 21:40 | disposition short-term general hospital (02) ==
PROVIDERS: Physician Assistant Medical; Emergency Provider Student in an Organized Health Care Education/Training Program; PCP Physician Assistant
DX: O98.812 Other maternal infectious and parasitic diseases complicating pregnancy, second trimester (principal); A41.9 Sepsis, unspecified organism; R65.20 Severe sepsis without septic shock; R00.0 Tachycardia, unspecified; R42 Dizziness and giddiness; R06.02 Shortness of breath; E86.0 Dehydration; R05.9 Cough, unspecified; Z3A.23 23 weeks gestation of pregnancy; Z11.52 Encounter for screening for COVID-19; Z79.899 Other long term (current) drug therapy; Z51.81 Encounter for therapeutic drug level monitoring
CPT/HCPCS: 36415; 71045; 80048; 80076; 81001; 82550; 83605; 83735; 83880; 84484; 85007; 85025; 85027; 87040; 87086; 87502; 87635; 93005; 96365; 96366; 96375; 99284; 99285; 99291; J0696; J3475; J7120

== ENCOUNTER → 2025-03-28 16:27 | Outpatient (BNV) | payer SELFPAY | PROVIDERS: Emergency Provider Student in an Organized Health Care Education/Training Program; PCP Physician Assistant; Visit Provider Internal Medicine Cardiovascular Disease | DX: R00.0 Tachycardia, unspecified (principal) | CPT/HCPCS: 93010 ==

== ENCOUNTER → 2025-03-28 18:11 | Outpatient (BNV) | payer SELFPAY | PROVIDERS: Emergency Provider Student in an Organized Health Care Education/Training Program; PCP Physician Assistant; Visit Provider Radiology Diagnostic Radiology | DX: R05.9 Cough, unspecified (principal) | CPT/HCPCS: 71045 ==